=== PATIENT | male | born 1960 | race African-American/Black ===

== ENCOUNTER 2019-04-25 14:34 | Inpatient (IN) ==
[2019-04-26] MEDS ORDERED: DEXTROSE 50% 25 GM/50 ML VIAL IV PRN (12:28)
[2019-04-26] MEDS ORDERED: DEXTROSE 10% 250 ML BAG IV PRN (12:28)
[2019-04-26] MEDS ORDERED: GLUCAGON 1 MG VIAL IM PRN ×2 (12:28)
[2019-04-26] MEDS ORDERED: NAPROXEN 500 MG TABLET PO PRN (12:32)
[2019-04-26] MEDS: hydrALAZINE 25 MG TABLET PO SCH ×2 (16:48→21:09)
[2019-04-26] MEDS: NON-FORMULARY MEDICATION (Sucroferric Oxyhydroxide [Velphoro] 500 MG) PO SCH (16:49)
[2019-04-26] MEDS: INSULIN LISPRO 100 UNIT/ML SUBCUT SCH ×2 (16:49→21:11)
[2019-04-26] MEDS ORDERED: NON-FORMULARY MEDICATION (Sucroferric Oxyhydroxide [Velphoro] 500 MG) PO SCH (17:00)
[2019-04-26] MEDS: SIMVASTATIN 10 MG TABLET PO SCH (21:09)
[2019-04-26] MEDS: amLODIPine 10 MG TABLET PO SCH (21:09)
[2019-04-27 04:50] LABS: Basophils # 0.1 10*3/uL (0.0-0.2); Basophils % 1.3 % (0.0-0.8); Eosinophils # 0.4 10*3/uL (0.0-0.87); Eosinophils % 6.1 % (0.00-10.9); Hematocrit 34.3 VOL% (42.0-52.0); Hemoglobin 10.8 GM/DL (14.0-18.0); Immature Granulocytes % 0.4 %; Immature Granulocytes Absolute 0.03 #; Lymphocytes % 14.9 % (21.2-54.2); Mean Corpuscular HGB Conc 31.5 GM/DL (32-36); Mean Platelet Volume 11.2 FL (9.6-12.0); Monocytes % 16.3 % (1.7-12.7); NRBC # 0.02 10*3/uL; Platelet Count 288 T/CUMM (130-400); Red Blood Count 3.61 MC/CUMM (3.8-5.5); Red Cell Distribution Width 17.2 % (9.3-17.3); White Blood Count 6.8 T/CUMM (4-12)
[2019-04-27 05:16] LABS: Bilirubin,Total 0.9 MG/DL (0.2-1.0); Calcium 8.8 MG/DL (8.5-10.1); Eosinophils 4 % (0-10); Lymphocytes 11 % (20-55); Nucleated Red Blood Cells 1 (0-5); Osmolality,Calculated 275.7 MOS/KG (273-304); Segmented Neutrophils 74 % (50-85); Total Cells Counted 100; Total Protein 7.5 G/DL (6.4-8.3)
[2019-04-27 05:17] LABS: Hypochromasia Slight; Macrocytosis Slight; Ovalocytes Slight; Platelet Estimate Normal
[2019-04-27] MEDS: INSULIN LISPRO 100 UNIT/ML SUBCUT SCH (09:07)
[2019-04-27] MEDS: LOSARTAN 50 MG TABLET PO SCH ×2 (09:38→13:38)
[2019-04-27] MEDS: NON-FORMULARY MEDICATION (Sucroferric Oxyhydroxide [Velphoro] 500 MG) PO SCH ×3 (09:38→16:32)
[2019-04-27] MEDS: hydrALAZINE 25 MG TABLET PO SCH ×4 (09:38→20:57)
[2019-04-27] MEDS: CINACALCET 30 MG TABLET PO SCH ×2 (10:28→13:38)
[2019-04-27] MEDS: PANTOPRAZOLE 40 MG TABLET PO SCH ×2 (10:28→13:39)
[2019-04-27] MEDS: FAMOTIDINE 20 MG TABLET PO SCH ×2 (10:28→13:39)
[2019-04-27] MEDS: SIMVASTATIN 10 MG TABLET PO SCH (20:57)
[2019-04-27] MEDS: amLODIPine 10 MG TABLET PO SCH (20:58)
[2019-04-28 05:35] LABS: Calcium 8.4 MG/DL (8.5-10.1); Osmolality,Calculated 277.4 MOS/KG (273-304)
[2019-04-28] MEDS: CINACALCET 30 MG TABLET PO SCH (09:01)
[2019-04-28] MEDS: PANTOPRAZOLE 40 MG TABLET PO SCH (09:01)
[2019-04-28] MEDS: LOSARTAN 50 MG TABLET PO SCH (09:01)
[2019-04-28] MEDS: NON-FORMULARY MEDICATION (Sucroferric Oxyhydroxide [Velphoro] 500 MG) PO SCH ×3 (09:02→16:03)
[2019-04-28] MEDS: FAMOTIDINE 20 MG TABLET PO SCH (09:02)
[2019-04-28] MEDS: hydrALAZINE 25 MG TABLET PO SCH ×3 (09:02→21:06)
[2019-04-28] MEDS: amLODIPine 10 MG TABLET PO SCH (21:06)
[2019-04-28] MEDS: SIMVASTATIN 10 MG TABLET PO SCH (21:06)
[2019-04-29 06:07] LABS: Basophils # 0.1 10*3/uL (0.0-0.2); Basophils % 1.7 % (0.0-0.8); Eosinophils # 0.4 10*3/uL (0.0-0.87); Eosinophils % 7.8 % (0.00-10.9); Hematocrit 34.2 VOL% (42.0-52.0); Hemoglobin 10.7 GM/DL (14.0-18.0); Immature Granulocytes % 0.4 %; Immature Granulocytes Absolute 0.02 #; Lymphocytes % 18.1 % (21.2-54.2); Mean Corpuscular HGB Conc 31.3 GM/DL (32-36); Mean Platelet Volume 10.3 FL (9.6-12.0); Monocytes % 19.9 % (1.7-12.7); Neutrophils % 52.1 % (38.7-73.9); Platelet Count 245 T/CUMM (130-400); Red Cell Distribution Width 17.1 % (9.3-17.3); White Blood Count 5.4 T/CUMM (4-12)
[2019-04-29 06:38] LABS: Calcium 8.2 MG/DL (8.5-10.1); Osmolality,Calculated 274.8 MOS/KG (273-304)
[2019-04-29 07:37] LABS: Eosinophils 11 % (0-10); Hypochromasia Slight; Lymphocytes 16 % (20-55); Macrocytosis Slight; Ovalocytes Slight; Platelet Estimate Adequate; Segmented Neutrophils 61 % (50-85); Total Cells Counted 100
[2019-04-29] MEDS: CINACALCET 30 MG TABLET PO SCH (09:06)
[2019-04-29] MEDS: LOSARTAN 50 MG TABLET PO SCH (09:06)
[2019-04-29] MEDS: PANTOPRAZOLE 40 MG TABLET PO SCH (09:07)
[2019-04-29] MEDS: hydrALAZINE 25 MG TABLET PO SCH ×3 (09:07→21:30)
[2019-04-29] MEDS: FAMOTIDINE 20 MG TABLET PO SCH (09:07)
[2019-04-29] MEDS: NON-FORMULARY MEDICATION (Sucroferric Oxyhydroxide [Velphoro] 500 MG) PO SCH ×3 (09:07→16:13)
[2019-04-29] MEDS: amLODIPine 10 MG TABLET PO SCH (21:30)
[2019-04-29] MEDS: SIMVASTATIN 10 MG TABLET PO SCH (21:30)
[2019-04-30] MEDS: NON-FORMULARY MEDICATION (Sucroferric Oxyhydroxide [Velphoro] 500 MG) PO SCH ×3 (09:05→16:24)
[2019-04-30] MEDS: CINACALCET 30 MG TABLET PO SCH (09:06)
[2019-04-30] MEDS: LOSARTAN 50 MG TABLET PO SCH (09:06)
[2019-04-30] MEDS: ASPIRIN EC 81 MG TABLET PO SCH (09:06)
[2019-04-30] MEDS: hydrALAZINE 25 MG TABLET PO SCH ×3 (09:06→20:39)
[2019-04-30] MEDS: FAMOTIDINE 20 MG TABLET PO SCH (09:06)
[2019-04-30] MEDS: PANTOPRAZOLE 40 MG TABLET PO SCH (09:06)
[2019-04-30] MEDS ORDERED: DEXTROSE 50% 25 GM/50 ML VIAL IV PRN (09:53)
[2019-04-30] MEDS ORDERED: GLUCAGON 1 MG VIAL IM PRN (09:53)
[2019-04-30] MEDS ORDERED: SODIUM CHLORIDE 0.9% 1,000 ML IV SCH (10:00)
[2019-04-30] MEDS ORDERED: CEFUROXIME INJ 1,500 MG in SYRINGE 1 EACH IV ONE (10:00)
[2019-04-30 10:44] LABS: Basophils # 0.1 10*3/uL (0.0-0.2); Basophils % 1.2 % (0.0-0.8); Eosinophils # 0.5 10*3/uL (0.0-0.87); Eosinophils % 7.1 % (0.00-10.9); Hematocrit 34.3 VOL% (42.0-52.0); Hemoglobin 11.1 GM/DL (14.0-18.0); Immature Granulocytes % 0.4 %; Immature Granulocytes Absolute 0.03 #; Lymphocytes # 0.7 10*3/uL (1.4-4.0); Lymphocytes % 10.3 % (21.2-54.2); Mean Corpuscular HGB Conc 32.4 GM/DL (32-36); Mean Corpuscular Volume 92.7 FL (87-102); Mean Platelet Volume 10.1 FL (9.6-12.0); Monocytes % 13.6 % (1.7-12.7); Neutrophils % 67.4 % (38.7-73.9); Platelet Count 241 T/CUMM (130-400); White Blood Count 6.9 T/CUMM (4-12)
[2019-04-30 11:21] LABS: Albumin 3.2 G/DL (3.4-5.0); Bilirubin,Total 0.5 MG/DL (0.2-1.0); Calcium 8.5 MG/DL (8.5-10.1); Osmolality,Calculated 274.4 MOS/KG (273-304); Total Protein 7.7 G/DL (6.4-8.3)
[2019-04-30] MEDS: CHLORHEXIDINE 4% SOLN 118 ML BOTTLE TOP SCH ×2 (15:43→20:45)
[2019-04-30 16:14] LABS: ABG Base Excess 1.5 MMOL/L (-2.5-2.5); ABG HCO3 25.7 MMOL/L (20-26); ABG Oxygen Saturation 96.9 % (95-100); ABG PCO2 37.3 MM HG (35-48); ABG PH 7.441 (7.35-7.45); ABG TCO2 22.5 MMOL/L (23-27)
[2019-04-30] MEDS: amLODIPine 10 MG TABLET PO SCH (20:39)
[2019-04-30] MEDS: SIMVASTATIN 10 MG TABLET PO SCH (20:40)
[2019-04-30] MEDS: CHLORHEXIDINE 0.12% ORAL RINSE 60 ML BOTTLE SWISH/SPIT SCH (21:10)
[2019-05-01] MEDS ORDERED: VANCOMYCIN 500 MG VIAL ONE (04:22)
[2019-05-01] MEDS ORDERED: PAPAVERINE 60 MG/2 ML VIAL ONE (04:22)
[2019-05-01] MEDS ORDERED: VANCOMYCIN 1,000 MG VIAL ONE (04:22)
[2019-05-01] MEDS ORDERED: LORazepam 1 MG TABLET PO ONE (05:30)
[2019-05-01] MEDS ORDERED: PANTOPRAZOLE 40 MG TABLET PO ONE (05:30)
[2019-05-01] MEDS ORDERED: CEFUROXIME INJ 1,500 MG in SYRINGE 1 EACH IV ONE (06:00)
[2019-05-01 06:02] LABS: Calcium 8.1 MG/DL (8.5-10.1); Osmolality,Calculated 274.5 MOS/KG (273-304)
[2019-05-01] MEDS ORDERED: HEPARIN/NACL 0.9% 2 UNITS/ML 500 ML IV ONE (06:04)
[2019-05-01] MEDS ORDERED: PHENYLEPHRINE DRIP 20 MG/250 ML PREMIX IV ONE (06:04)
[2019-05-01] MEDS ORDERED: MIDAZOLAM 10 MG/2 ML VIAL ONE ×2 (06:04→06:05)
[2019-05-01] MEDS ORDERED: SUFentanil 250 MCG/5 ML AMP ONE (06:04)
[2019-05-01] MEDS ORDERED: AMINOCAPROIC ACID 5,000 MG/20 ML VIAL ONE (06:05)
[2019-05-01] MEDS ORDERED: CISATRACURIUM 10 MG/5 ML VIAL IV ONE (06:05)
[2019-05-01] MEDS ORDERED: ATROPINE 1 MG/10 ML SYRINGE ONE (07:09)
[2019-05-01] MEDS ORDERED: CALCIUM CHLORIDE 1,000 MG/10 ML SYRINGE IV ONE (07:09)
[2019-05-01] MEDS ORDERED: EPINEPHrine 1 MG/10 ML SYRINGE ONE (07:10)
[2019-05-01] MEDS ORDERED: ALBUMIN 5% 12.5 GM/250 ML VIAL IV ONE (07:10)
[2019-05-01] MEDS ORDERED: PHENYLEPHRINE DRIP 40 MG/250 ML PREMIX IV ONE (07:11)
[2019-05-01] MEDS ORDERED: NITROPRUSSIDE 50 MG/2 ML VIAL ONE (07:11)
[2019-05-01 07:39] LABS: ABG Base Excess -0.1 MMOL/L (-2.5-2.5); ABG HCO3 24.3 MMOL/L (20-26); ABG Oxygen Saturation 99.6 % (95-100); ABG PCO2 31.5 MM HG (35-48); ABG TCO2 20.6 MMOL/L (23-27); Glucose Heart Surgery 163 MG/DL (74-106); Hematocrit Heart Surgery 32.2 PERCENT (42-52); Hemoglobin Heart Surgery 10.4 G/DL (14.0-18.0); Ionized Calcium Arterial 0.99 MMOL/L (1.21-1.46); PCO2 Patient Temp Arterial 31.5 MMHG; Patient Temperature 37 CELCIUS; Potassium Heart/CVR 4.9 MMOL/L (3.5-5.1); Sodium Heart/CVR 131 MMOL/L (135-145)
[2019-05-01 08:29] LABS: Hemoglobin Heart Surgery 7.7 G/DL (14.0-18.0); PCO2 Patient Temp Venous 33.8 MM HG; PH Patient Temp Venous 7.453; Potassium Heart/CVR 6.3 MMOL/L (3.5-5.1); VBG Base Excess 0.1 MEQ/L (0-4); VBG HCO3 24.3 MEQ/L (24-28); VBG Oxygen Saturation 80.9 %; VBG PCO2 35.5 MMHG (41-51); VBG PH 7.438
[2019-05-01 09:05] LABS: Hematocrit Heart Surgery 25.4 PERCENT (42-52); Hemoglobin Heart Surgery 8.2 G/DL (14.0-18.0); PCO2 Patient Temp Venous 32.2 MM HG; PH Patient Temp Venous 7.433; PO2 Patient Temp Venous 45.7 MM HG; Potassium Heart/CVR 6.1 MMOL/L (3.5-5.1); VBG Base Excess -2.2 MEQ/L (0-4); VBG HCO3 22.3 MEQ/L (24-28); VBG Oxygen Saturation 80.9 %; VBG PCO2 32.2 MMHG (41-51); VBG PH 7.433; VBG PO2 45.7 MMHG (17-40)
[2019-05-01] MEDS ORDERED: MANNITOL 100 GM/500 ML BAG IV ONE (09:27)
[2019-05-01] MEDS ORDERED: SODIUM BICARBONATE 50 MEQ/50 ML VIAL IV ONE ×3 (09:28→21:30)
[2019-05-01] MEDS ORDERED: DEXTROSE 5% KCL 20 MEQ 20 MEQ/1,000 ML BAG IV ONE (09:28)
[2019-05-01] MEDS ORDERED: methylPREDNISolone SOD SUC 1,000 MG/8 ML VIAL ONE (09:28)
[2019-05-01] MEDS ORDERED: ALBUMIN 25% 25 GM/100 ML VIAL IV ONE (09:28)
[2019-05-01] MEDS ORDERED: HEPARIN 10,000 UNIT/10 ML VIAL ONE (09:28)
[2019-05-01] MEDS ORDERED: LIDOCAINE 2% 5 ML VIAL ONE ×2 (09:28→10:48)
[2019-05-01] MEDS ORDERED: FUROSEMIDE 20 MG/2 ML VIAL ONE (09:28)
[2019-05-01] MEDS ORDERED: MAGNESIUM SULFATE 5 GM/10 ML VIAL IV ONE (09:28)
[2019-05-01] MEDS ORDERED: PROTAMINE SULFATE 250 MG/25 ML VIAL IV ONE (09:29)
[2019-05-01 09:43] LABS: ABG Base Excess -5.3 MMOL/L (-2.5-2.5); ABG HCO3 20.1 MMOL/L (20-26); ABG Oxygen Saturation 99.4 % (95-100); ABG PCO2 32.1 MM HG (35-48); ABG TCO2 17.2 MMOL/L (23-27); Glucose Heart Surgery 255 MG/DL (74-106); Hematocrit Heart Surgery 32.3 PERCENT (42-52); Hemoglobin Heart Surgery 10.5 G/DL (14.0-18.0); Ionized Calcium Arterial 1.05 MMOL/L (1.21-1.46); PCO2 Patient Temp Arterial 32.1 MMHG; Patient Temperature 37 CELCIUS; Potassium Heart/CVR 5.7 MMOL/L (3.5-5.1); Sodium Heart/CVR 129 MMOL/L (135-145)
[2019-05-01] MEDS ORDERED: ACETAMINOPHEN 650 MG SUPP RECTAL PRN (10:32)
[2019-05-01] MEDS ORDERED: MIDAZOLAM 2 MG/2 ML VIAL IV PRN (10:32)
[2019-05-01] MEDS ORDERED: DEXTROSE 50% 25 GM/50 ML VIAL IV PRN ×2 (10:32)
[2019-05-01] MEDS ORDERED: CHLORHEXIDINE 4% SOLN 118 ML BOTTLE TOP PRN (10:32)
[2019-05-01] MEDS ORDERED: ALBUMIN 5% 12.5 GM in PREMIX 1 EACH IV PRN (10:32)
[2019-05-01] MEDS ORDERED: ONDANSETRON 4 MG/2 ML VIAL IV PRN (10:32)
[2019-05-01] MEDS ORDERED: CALCIUM CHLORIDE 1,000 MG/10 ML SYRINGE IV PRN (10:32)
[2019-05-01] MEDS ORDERED: POTASSIUM CHLORIDE RIDER 10 MEQ in PREMIX 1 EACH IV PRN (10:32)
[2019-05-01] MEDS ORDERED: NITROPRUSSIDE 100 MG in DEXTROSE 5% 250 ML IV PRN (10:32)
[2019-05-01] MEDS ORDERED: VECURONIUM 10 MG VIAL IV PRN ×2 (10:32)
[2019-05-01] MEDS ORDERED: MAGNESIUM SULF RIDER 4 GM in PREMIX 1 EACH IV PRN (10:32)
[2019-05-01] MEDS ORDERED: MIDAZOLAM 10 MG/2 ML VIAL IV PRN (10:32)
[2019-05-01] MEDS ORDERED: MAGNESIUM SULF RIDER 2 GM in PREMIX 1 EACH IV PRN (10:32)
[2019-05-01] MEDS ORDERED: SODIUM CHLORIDE 0.45% 1,000 ML IV SCH ×2 (10:32)
[2019-05-01] MEDS ORDERED: MORPHINE 10 MG/1 ML VIAL IV PRN (10:32)
[2019-05-01] MEDS ORDERED: POTASSIUM CHLORIDE RIDER 20 MEQ in PREMIX 1 EACH IV PRN (10:32)
[2019-05-01] MEDS ORDERED: PHENYLEPHRINE DRIP 40 MG/250 ML PREMIX IV PRN (10:32)
[2019-05-01] MEDS ORDERED: LACTATED RINGERS 250 ML IV PRN (10:32)
[2019-05-01] MEDS: CHLORHEXIDINE 4% SOLN 118 ML BOTTLE TOP SCH (10:48)
[2019-05-01] MEDS ORDERED: ETOMIDATE 40 MG/20 ML VIAL IV ONE (10:49)
[2019-05-01] MEDS ORDERED: SEVOFLURANE 1 UNIT/15 MINUTE INH ONE (10:49)
[2019-05-01] MEDS ORDERED: CALCIUM CHLORIDE 1,000 MG/10 ML VIAL IV ONE (10:49)
[2019-05-01] MEDS ORDERED: LACTATED RINGERS 1,000 ML IV ONE (10:49)
[2019-05-01] MEDS: hydrALAZINE 25 MG TABLET PO SCH (10:50)
[2019-05-01] MEDS: NON-FORMULARY MEDICATION (Sucroferric Oxyhydroxide [Velphoro] 500 MG) PO SCH (10:50)
[2019-05-01] MEDS: PANTOPRAZOLE 40 MG TABLET PO SCH (10:51)
[2019-05-01] MEDS: CINACALCET 30 MG TABLET PO SCH (10:51)
[2019-05-01] MEDS: CHLORHEXIDINE 0.12% ORAL RINSE 60 ML BOTTLE SWISH/SPIT SCH ×2 (10:51→21:01)
[2019-05-01] MEDS: FAMOTIDINE 20 MG TABLET PO SCH (10:51)
[2019-05-01] MEDS: ASPIRIN EC 81 MG TABLET PO SCH (10:51)
[2019-05-01] MEDS: LOSARTAN 50 MG TABLET PO SCH (10:51)
[2019-05-01] MEDS ORDERED: DEXTROSE 10% 250 ML BAG IV PRN ×2 (11:00)
[2019-05-01 11:26] LABS: ABG Base Excess -3.9 MMOL/L (-2.5-2.5); ABG HCO3 21.2 MMOL/L (20-26); ABG PH 7.403 (7.35-7.45); ABG TCO2 17.9 MMOL/L (23-27); Glucose Heart Surgery 270 MG/DL (74-106); Hematocrit Heart Surgery 34.7 PERCENT (42-52); Hemoglobin Heart Surgery 11.2 G/DL (14.0-18.0); Potassium Heart/CVR 5.7 MMOL/L (3.5-5.1)
[2019-05-01] MEDS ORDERED: INSULIN REGULAR DRIP 100 ML IV SCH (11:30)
[2019-05-01] MEDS ORDERED: INSULIN REGULAR 100 UNIT/ML IV ONE ×2 (11:30→19:18)
[2019-05-01 11:35] LABS: Basophils # 0.1 10*3/uL (0.0-0.2); Basophils % 0.6 % (0.0-0.8); Eosinophils # 0.1 10*3/uL (0.0-0.87); Hematocrit 34.8 VOL% (42.0-52.0); Immature Granulocytes % 0.7 %; Immature Granulocytes Absolute 0.08 #; Lymphocytes # 0.4 10*3/uL (1.4-4.0); Mean Corpuscular HGB Conc 31.6 GM/DL (32-36); Mean Corpuscular Volume 92.1 FL (87-102); Mean Platelet Volume 10.8 FL (9.6-12.0); Monocytes % 5.9 % (1.7-12.7); Neutrophils % 88.8 % (38.7-73.9); Platelet Count 188 T/CUMM (130-400); Red Blood Count 3.78 MC/CUMM (3.8-5.5); Red Cell Distribution Width 17.4 % (9.3-17.3); White Blood Count 11.5 T/CUMM (4-12)
[2019-05-01 11:44] LABS: INR 1.1; Partial Thromboplastin Time 28.7 SECS (20.8-36.0)
[2019-05-01 12:00] LABS: Albumin 3.1 G/DL (3.4-5.0); Bilirubin,Total 0.7 MG/DL (0.2-1.0); Osmolality,Calculated 274.8 MOS/KG (273-304); Total Protein 6.4 G/DL (6.4-8.3)
[2019-05-01 12:02] LABS: CKMB % 5.2 %
[2019-05-01 12:04] LABS: Troponin I 1.49 NG/ML (0.00-0.045)
[2019-05-01] MEDS: INSULIN REGULAR 100 UNIT/ML IV PRN (12:11)
[2019-05-01 12:20] LABS: Anisocytosis 2+; Band Neutrophils 11 % (0-10); Eosinophils 2 % (0-10); Lymphocytes 2 % (20-55); Macrocytosis 1+; Platelet Estimate Normal; Poikilocytosis Slight; Segmented Neutrophils 76 % (50-85); Total Cells Counted 100
[2019-05-01] MEDS: MORPHINE 4 MG/1 ML VIAL IV PRN ×2 (14:15→17:42)
[2019-05-01] MEDS ORDERED: SODIUM CHLORIDE 0.9% 250 ML IV PRN (15:10)
[2019-05-01 15:34] LABS: ABG HCO3 20.3 MMOL/L (20-26); ABG Oxygen Saturation 98.6 % (95-100); ABG PCO2 35.4 MM HG (35-48); ABG PH 7.357 (7.35-7.45); ABG TCO2 17.8 MMOL/L (23-27); Glucose Heart Surgery 52 MG/DL (74-106); Hemoglobin Heart Surgery 11.4 G/DL (14.0-18.0); Potassium Heart/CVR 4.6 MMOL/L (3.5-5.1)
[2019-05-01] MEDS ORDERED: DEXTROSE 10% 250 ML IV SCH (17:00)
[2019-05-01 18:04] LABS: ABG Base Excess -6.8 MMOL/L (-2.5-2.5); ABG Oxygen Saturation 98.6 % (95-100); ABG PCO2 24.4 MM HG (35-48); ABG PH 7.435 (7.35-7.45); ABG PO2 176.6 MM HG (80-95); ABG TCO2 16.8 MMOL/L (23-27); Glucose Heart Surgery 103 MG/DL (74-106); Hemoglobin Heart Surgery 10.6 G/DL (14.0-18.0)
[2019-05-01 18:52] LABS: ABG Base Excess -6.5 MMOL/L (-2.5-2.5); ABG HCO3 19.1 MMOL/L (20-26); ABG Oxygen Saturation 98.8 % (95-100); ABG PCO2 32.7 MM HG (35-48); ABG PH 7.353 (7.35-7.45); ABG TCO2 16.4 MMOL/L (23-27); Glucose Heart Surgery 148 MG/DL (74-106); Hematocrit Heart Surgery 34.3 PERCENT (42-52); Hemoglobin Heart Surgery 11.1 G/DL (14.0-18.0)
[2019-05-01] MEDS ORDERED: CALCIUM GLUCONATE 1,000 MG in SODIUM CHLORIDE 0.9% 100 ML IV ONE (19:18)
[2019-05-01] MEDS ORDERED: CALCIUM GLUCONATE 1,000 MG/10 ML VIAL IV ONE (19:24)
[2019-05-01] MEDS ORDERED: SODIUM CHLORIDE 0.9% 100 ML IV ONE (19:24)
[2019-05-01 19:29] LABS: CKMB % 5.9 %
[2019-05-01] MEDS: DEXTROSE 10% 250 ML BAG IV PRN (19:42)
[2019-05-01 19:45] LABS: Troponin I 2.86 NG/ML (0.00-0.045)
[2019-05-01] MEDS: CEFUROXIME INJ 1,500 MG in SYRINGE 1 EACH IV SCH (20:15)
[2019-05-01 20:26] LABS: ABG Base Excess -6.4 MMOL/L (-2.5-2.5); ABG HCO3 19.2 MMOL/L (20-26); ABG Oxygen Saturation 98.9 % (95-100); ABG PCO2 32.3 MM HG (35-48); ABG PH 7.358 (7.35-7.45); ABG TCO2 16.5 MMOL/L (23-27); Glucose Heart Surgery 182 MG/DL (74-106); Hemoglobin Heart Surgery 10.7 G/DL (14.0-18.0)
[2019-05-01 21:11] LABS: ABG Base Excess -6.3 MMOL/L (-2.5-2.5); ABG HCO3 19.3 MMOL/L (20-26); ABG Oxygen Saturation 98.6 % (95-100); ABG PCO2 41.6 MM HG (35-48); ABG TCO2 18.3 MMOL/L (23-27); Glucose Heart Surgery 151 MG/DL (74-106); Hematocrit Heart Surgery 33.2 PERCENT (42-52); Hemoglobin Heart Surgery 10.7 G/DL (14.0-18.0)
[2019-05-01] MEDS ORDERED: SODIUM BICARBONATE 50 MEQ/50 ML VIAL IV PRN (21:30)
[2019-05-01 22:53] LABS: ABG Base Excess -4.1 MMOL/L (-2.5-2.5); ABG Oxygen Saturation 98.1 % (95-100); ABG PCO2 42.6 MM HG (35-48); ABG PH 7.319 (7.35-7.45); ABG TCO2 19.8 MMOL/L (23-27); Glucose Heart Surgery 147 MG/DL (74-106); Hematocrit Heart Surgery 34.1 PERCENT (42-52); Potassium Heart/CVR 5.5 MMOL/L (3.5-5.1)
[2019-05-02 03:23] LABS: ABG Base Excess -7.6 MMOL/L (-2.5-2.5); ABG HCO3 18.1 MMOL/L (20-26); ABG Oxygen Saturation 97.5 % (95-100); ABG PCO2 37.3 MM HG (35-48); ABG PH 7.304 (7.35-7.45); ABG PO2 115.4 MM HG (80-95); ABG TCO2 19.3 MMOL/L (23-27); Glucose Heart Surgery 164 MG/DL (74-106); Hemoglobin Heart Surgery 11.4 G/DL (14.0-18.0)
[2019-05-02 03:24] LABS: Potassium Heart/CVR 6.3 MMOL/L (3.5-5.1)
[2019-05-02] MEDS ORDERED: CALCIUM GLUCONATE 1,000 MG in SODIUM CHLORIDE 0.9% 100 ML IV ONE (03:29)
[2019-05-02] MEDS ORDERED: SODIUM CHLORIDE 0.9% 100 ML IV ONE (03:33)
[2019-05-02] MEDS ORDERED: CALCIUM GLUCONATE 1,000 MG/10 ML VIAL IV ONE (03:33)
[2019-05-02 03:35] LABS: Basophils % 0.1 % (0.0-0.8); Hematocrit 35.5 VOL% (42.0-52.0); Hemoglobin 11.1 GM/DL (14.0-18.0); Immature Granulocytes % 0.6 %; Immature Granulocytes Absolute 0.08 #; Lymphocytes # 0.5 10*3/uL (1.4-4.0); Lymphocytes % 3.6 % (21.2-54.2); Mean Corpuscular HGB Conc 31.3 GM/DL (32-36); Mean Corpuscular Volume 93.7 FL (87-102); Mean Platelet Volume 11.3 FL (9.6-12.0); Monocytes % 5.9 % (1.7-12.7); Neutrophils % 89.8 % (38.7-73.9); Platelet Count 193 T/CUMM (130-400); Red Blood Count 3.79 MC/CUMM (3.8-5.5); Red Cell Distribution Width 17.9 % (9.3-17.3); White Blood Count 14.3 T/CUMM (4-12)
[2019-05-02] MEDS: DEXTROSE 10% 250 ML BAG IV PRN (03:37)
[2019-05-02] MEDS: INSULIN REGULAR 100 UNIT/ML IV PRN (03:38)
[2019-05-02 03:56] LABS: Eosinophils 1 % (0-10); Hypochromasia Slight; Lymphocytes 3 % (20-55); Ovalocytes Slight; Platelet Estimate Adequate; Segmented Neutrophils 90 % (50-85); Total Cells Counted 100
[2019-05-02 03:57] LABS: Bilirubin,Direct 0.18 MG/DL (0.0-0.20); Bilirubin,Total 0.5 MG/DL (0.2-1.0); Calcium 8.5 MG/DL (8.5-10.1); Osmolality,Calculated 279.5 MOS/KG (273-304); Total Protein 7.1 G/DL (6.4-8.3)
[2019-05-02 03:59] LABS: CKMB % 9.3 %
[2019-05-02 04:03] LABS: Troponin I 6.75 NG/ML (0.00-0.045)
[2019-05-02 05:17] LABS: ABG Base Excess -5.2 MMOL/L (-2.5-2.5); ABG HCO3 20.7 MMOL/L (20-26); ABG Oxygen Saturation 97.4 % (95-100); ABG PCO2 41.4 MM HG (35-48); ABG PH 7.316 (7.35-7.45); ABG TCO2 21.9 MMOL/L (23-27); Glucose Heart Surgery 188 MG/DL (74-106); Hemoglobin Heart Surgery 10.9 G/DL (14.0-18.0); Potassium Heart/CVR 4.8 MMOL/L (3.5-5.1)
[2019-05-02] MEDS: CEFUROXIME INJ 1,500 MG in SYRINGE 1 EACH IV SCH ×2 (08:14→22:27)
[2019-05-02] MEDS: CHLORHEXIDINE 0.12% ORAL RINSE 60 ML BOTTLE SWISH/SPIT SCH ×2 (08:15→22:00)
[2019-05-02] MEDS: INSULIN REGULAR 100 UNIT/ML SUBCUT SCH ×5 (09:31→22:00)
[2019-05-02] MEDS: MORPHINE 4 MG/1 ML VIAL IV PRN (12:04)
[2019-05-02] MEDS ORDERED: MAGNESIUM SULF RIDER 2 GM in PREMIX 1 EACH IV PRN (16:56)
[2019-05-02] MEDS ORDERED: DEXTROSE 10% 250 ML BAG IV PRN ×2 (16:56)
[2019-05-02] MEDS ORDERED: ONDANSETRON 4 MG/2 ML VIAL IV PRN (16:56)
[2019-05-02] MEDS ORDERED: ALUMINUM/MAGNES/SIMETH MAX STR 30 ML UDCUP PO PRN (16:56)
[2019-05-02] MEDS ORDERED: MAGNESIUM SULF RIDER 4 GM in PREMIX 1 EACH IV PRN (16:56)
[2019-05-02] MEDS ORDERED: POTASSIUM CHLORIDE 20 MEQ TABLET PO PRN (16:56)
[2019-05-02] MEDS ORDERED: MAGNESIUM HYDROXIDE SUSP 30 ML UDCUP PO PRN (16:56)
[2019-05-02] MEDS ORDERED: SODIUM CHLOR 0.45% KCL 20 MEQ 20 MEQ/1,000 ML BAG IV SCH (16:56)
[2019-05-02] MEDS ORDERED: GLUCAGON 1 MG VIAL IM PRN ×2 (16:56)
[2019-05-02] MEDS ORDERED: ZALEPLON 5 MG CAPSULE PO PRN (16:56)
[2019-05-02] MEDS ORDERED: ACETAMINOPHEN 325 MG TABLET PO PRN (16:56)
[2019-05-02] MEDS ORDERED: VELPHORO 500 MG PO PRN (17:16)
[2019-05-02] MEDS: VELPHORO 500 MG PO SCH (18:57)
[2019-05-02] MEDS: SIMVASTATIN 10 MG TABLET PO SCH (21:09)
[2019-05-02] MEDS: hydrALAZINE 25 MG TABLET PO SCH (21:09)
[2019-05-02] MEDS: amLODIPine 10 MG TABLET PO SCH (21:09)
[2019-05-03] MEDS: INSULIN REGULAR 100 UNIT/ML SUBCUT SCH ×6 (00:05→21:12)
[2019-05-03 04:41] LABS: Basophils % 0.1 % (0.0-0.8); Hematocrit 29.7 VOL% (42.0-52.0); Hemoglobin 9.3 GM/DL (14.0-18.0); Immature Granulocytes Absolute 0.13 #; Lymphocytes # 0.3 10*3/uL (1.4-4.0); Lymphocytes % 2.2 % (21.2-54.2); Mean Corpuscular HGB Conc 31.3 GM/DL (32-36); Mean Corpuscular Volume 94.6 FL (87-102); Mean Platelet Volume 12.5 FL (9.6-12.0); Monocytes % 13.2 % (1.7-12.7); Neutrophils % 83.5 % (38.7-73.9); Platelet Count 167 T/CUMM (130-400); Red Blood Count 3.14 MC/CUMM (3.8-5.5); Red Cell Distribution Width 17.8 % (9.3-17.3); White Blood Count 13.6 T/CUMM (4-12)
[2019-05-03 05:01] LABS: Hypochromasia 1+; Lymphocytes 2 % (20-55); Nucleated Red Blood Cells 2 (0-5); Ovalocytes Slight; Platelet Estimate Adequate; Segmented Neutrophils 89 % (50-85); Total Cells Counted 100
[2019-05-03 05:13] LABS: Albumin 2.7 G/DL (3.4-5.0); Bilirubin,Direct 0.13 MG/DL (0.0-0.20); Bilirubin,Indirect 1.2 MG/DL (0.0-1.0); Bilirubin,Total 1.3 MG/DL (0.2-1.0); CKMB % 6.1 %; Calcium 8.8 MG/DL (8.5-10.1); Osmolality,Calculated 280.5 MOS/KG (273-304); Total Protein 6.6 G/DL (6.4-8.3); Troponin I 6.88 NG/ML (0.00-0.045)
[2019-05-03] MEDS ORDERED: FUROSEMIDE 40 MG/4 ML VIAL IV ONE (06:00)
[2019-05-03] MEDS: FERROUS SULFATE 325 MG TABLET PO SCH (09:06)
[2019-05-03] MEDS: amLODIPine 10 MG TABLET PO SCH (09:06)
[2019-05-03] MEDS: hydrALAZINE 25 MG TABLET PO SCH ×2 (09:06→21:12)
[2019-05-03] MEDS: PANTOPRAZOLE 40 MG TABLET PO SCH (09:06)
[2019-05-03] MEDS: ASPIRIN EC 81 MG TABLET PO SCH (09:07)
[2019-05-03] MEDS: DOCUSATE SODIUM 100 MG CAPSULE PO SCH (09:07)
[2019-05-03] MEDS: CHLORHEXIDINE 0.12% ORAL RINSE 60 ML BOTTLE SWISH/SPIT SCH ×2 (09:07→21:13)
[2019-05-03] MEDS: VELPHORO 500 MG PO SCH ×3 (09:08→17:12)
[2019-05-03] MEDS: CINACALCET 30 MG TABLET PO SCH (09:11)
[2019-05-03] MEDS: oxyCODONE/ACETAMINOPHEN 5-325 MG TABLET PO PRN ×2 (17:11→21:48)
[2019-05-03] MEDS: SIMVASTATIN 10 MG TABLET PO SCH (21:12)
[2019-05-04] MEDS: INSULIN REGULAR 100 UNIT/ML SUBCUT SCH ×6 (01:15→21:29)
[2019-05-04 05:06] LABS: Basophils % 0.3 % (0.0-0.8); Eosinophils # 0.1 10*3/uL (0.0-0.87); Eosinophils % 0.9 % (0.00-10.9); Hematocrit 30.6 VOL% (42.0-52.0); Hemoglobin 9.4 GM/DL (14.0-18.0); Immature Granulocytes % 0.7 %; Immature Granulocytes Absolute 0.07 #; Lymphocytes # 0.8 10*3/uL (1.4-4.0); Lymphocytes % 8.1 % (21.2-54.2); Mean Corpuscular HGB Conc 30.7 GM/DL (32-36); Mean Corpuscular Volume 95.9 FL (87-102); Mean Platelet Volume 12.1 FL (9.6-12.0); Monocytes % 16.5 % (1.7-12.7); Neutrophils % 73.5 % (38.7-73.9); Platelet Count 156 T/CUMM (130-400); Red Blood Count 3.19 MC/CUMM (3.8-5.5); Red Cell Distribution Width 17.3 % (9.3-17.3); White Blood Count 9.8 T/CUMM (4-12)
[2019-05-04 05:35] LABS: Eosinophils 2 % (0-10); Lymphocytes 10 % (20-55); Segmented Neutrophils 78 % (50-85); Total Cells Counted 100
[2019-05-04 05:36] LABS: Hypochromasia Slight; Macrocytosis 1+
[2019-05-04 05:37] LABS: Ovalocytes Slight; Platelet Estimate Adequate
[2019-05-04 05:48] LABS: Albumin 2.6 G/DL (3.4-5.0); Bilirubin,Direct 0.11 MG/DL (0.0-0.20); Bilirubin,Indirect 0.5 MG/DL (0.0-1.0); Bilirubin,Total 0.6 MG/DL (0.2-1.0); CKMB % 5.5 %; Calcium 8.2 MG/DL (8.5-10.1); Osmolality,Calculated 283.4 MOS/KG (273-304); Total Protein 6.7 G/DL (6.4-8.3)
[2019-05-04 05:49] LABS: Troponin I 6.19 NG/ML (0.00-0.045)
[2019-05-04] MEDS: VELPHORO 500 MG PO SCH ×3 (13:21→16:30)
[2019-05-04] MEDS: hydrALAZINE 25 MG TABLET PO SCH ×2 (13:22→21:29)
[2019-05-04] MEDS: FERROUS SULFATE 325 MG TABLET PO SCH (13:22)
[2019-05-04] MEDS: PANTOPRAZOLE 40 MG TABLET PO SCH (13:22)
[2019-05-04] MEDS: amLODIPine 10 MG TABLET PO SCH (13:22)
[2019-05-04] MEDS: DOCUSATE SODIUM 100 MG CAPSULE PO SCH (13:22)
[2019-05-04] MEDS: ASPIRIN EC 81 MG TABLET PO SCH (13:22)
[2019-05-04] MEDS: CINACALCET 30 MG TABLET PO SCH (13:22)
[2019-05-04] MEDS: CHLORHEXIDINE 0.12% ORAL RINSE 60 ML BOTTLE SWISH/SPIT SCH ×2 (13:23→21:30)
[2019-05-04] MEDS: oxyCODONE/ACETAMINOPHEN 5-325 MG TABLET PO PRN (13:25)
[2019-05-04] MEDS: SIMVASTATIN 10 MG TABLET PO SCH (21:29)
[2019-05-05 06:05] LABS: Calcium 8.1 MG/DL (8.5-10.1); Osmolality,Calculated 279.1 MOS/KG (273-304)
[2019-05-05] MEDS: DOCUSATE SODIUM 100 MG CAPSULE PO SCH (08:24)
[2019-05-05] MEDS: CINACALCET 30 MG TABLET PO SCH (08:24)
[2019-05-05] MEDS: hydrALAZINE 25 MG TABLET PO SCH ×2 (08:24→21:12)
[2019-05-05] MEDS: PANTOPRAZOLE 40 MG TABLET PO SCH (08:24)
[2019-05-05] MEDS: FERROUS SULFATE 325 MG TABLET PO SCH (08:25)
[2019-05-05] MEDS: ASPIRIN EC 81 MG TABLET PO SCH (08:25)
[2019-05-05] MEDS: amLODIPine 10 MG TABLET PO SCH (08:25)
[2019-05-05] MEDS: oxyCODONE/ACETAMINOPHEN 5-325 MG TABLET PO PRN ×2 (08:27→21:15)
[2019-05-05] MEDS: VELPHORO 500 MG PO SCH ×3 (08:28→17:14)
[2019-05-05] MEDS: CHLORHEXIDINE 0.12% ORAL RINSE 60 ML BOTTLE SWISH/SPIT SCH ×2 (08:29→21:13)
[2019-05-05] MEDS: INSULIN REGULAR 100 UNIT/ML SUBCUT SCH ×4 (08:29→21:12)
[2019-05-05] MEDS: SIMVASTATIN 10 MG TABLET PO SCH (21:13)
[2019-05-06 05:31] LABS: Hematocrit 28.2 VOL% (42.0-52.0); Hemoglobin 8.7 GM/DL (14.0-18.0); Red Blood Count 2.99 MC/CUMM (3.8-5.5); White Blood Count 7.4 T/CUMM (4-12)
[2019-05-06 05:32] LABS: Basophils # 0.1 10*3/uL (0.0-0.2); Basophils % 0.8 % (0.0-0.8); Eosinophils # 0.4 10*3/uL (0.0-0.87); Eosinophils % 5.7 % (0.00-10.9); Immature Granulocytes % 0.4 %; Immature Granulocytes Absolute 0.03 #; Lymphocytes # 0.9 10*3/uL (1.4-4.0); Mean Corpuscular HGB Conc 30.9 GM/DL (32-36); Mean Corpuscular Volume 94.3 FL (87-102); Mean Platelet Volume 11.8 FL (9.6-12.0); Monocytes % 16.4 % (1.7-12.7); Neutrophils % 64.7 % (38.7-73.9); Platelet Count 209 T/CUMM (130-400); Red Cell Distribution Width 16.9 % (9.3-17.3)
[2019-05-06 05:57] LABS: Alanine Aminotransferase 19 U/L (16-61); Albumin 2.4 G/DL (3.4-5.0); Alkaline Phosphatase 68 U/L (45-117); Aspartate Amino Transferase 24 U/L (0-37); Bilirubin,Indirect 0.3 MG/DL (0.0-1.0); Blood Urea Nitrogen 65 MG/DL (7-18); Calcium 7.6 MG/DL (8.5-10.1); Estimated Glom Filtration Rate 7 ML/MIN; Glucose 111 MG/DL (74-106); Osmolality,Calculated 287.2 MOS/KG (273-304); Total Protein 6.3 G/DL (6.4-8.3)
[2019-05-06 06:33] LABS: Anisocytosis 1+; Eosinophils 1 % (0-10); Lymphocytes 7 % (20-55); Platelet Estimate Adequate; Segmented Neutrophils 85 % (50-85); Total Cells Counted 100
[2019-05-06] MEDS: INSULIN REGULAR 100 UNIT/ML SUBCUT SCH ×4 (08:17→21:00)
[2019-05-06] MEDS: PANTOPRAZOLE 40 MG TABLET PO SCH (08:44)
[2019-05-06] MEDS: amLODIPine 10 MG TABLET PO SCH (08:44)
[2019-05-06] MEDS: FERROUS SULFATE 325 MG TABLET PO SCH (08:45)
[2019-05-06] MEDS: ASPIRIN EC 81 MG TABLET PO SCH (08:45)
[2019-05-06] MEDS: hydrALAZINE 25 MG TABLET PO SCH ×2 (08:45→20:59)
[2019-05-06] MEDS: CINACALCET 30 MG TABLET PO SCH (08:45)
[2019-05-06] MEDS: VELPHORO 500 MG PO SCH ×3 (08:45→16:31)
[2019-05-06] MEDS: CHLORHEXIDINE 0.12% ORAL RINSE 60 ML BOTTLE SWISH/SPIT SCH ×2 (08:45→20:59)
[2019-05-06] MEDS: DOCUSATE SODIUM 100 MG CAPSULE PO SCH (08:45)
[2019-05-06] MEDS: oxyCODONE/ACETAMINOPHEN 5-325 MG TABLET PO PRN ×3 (08:48→21:00)
[2019-05-06] MEDS: SIMVASTATIN 10 MG TABLET PO SCH (20:59)
[2019-05-07 05:06] LABS: Basophils # 0.1 10*3/uL (0.0-0.2); Basophils % 0.7 % (0.0-0.8); Eosinophils # 0.5 10*3/uL (0.0-0.87); Eosinophils % 6.8 % (0.00-10.9); Hematocrit 27.1 VOL% (42.0-52.0); Hemoglobin 8.5 GM/DL (14.0-18.0); Immature Granulocytes % 0.4 %; Immature Granulocytes Absolute 0.03 #; Lymphocytes # 0.9 10*3/uL (1.4-4.0); Lymphocytes % 12.8 % (21.2-54.2); Mean Corpuscular HGB Conc 31.4 GM/DL (32-36); Mean Corpuscular Volume 94.1 FL (87-102); Mean Platelet Volume 11.3 FL (9.6-12.0); Monocytes % 15.8 % (1.7-12.7); Neutrophils % 63.5 % (38.7-73.9); Platelet Count 216 T/CUMM (130-400); Red Blood Count 2.88 MC/CUMM (3.8-5.5); Red Cell Distribution Width 16.9 % (9.3-17.3)
[2019-05-07 05:23] LABS: Alanine Aminotransferase 15 U/L (16-61); Albumin 2.5 G/DL (3.4-5.0); Alkaline Phosphatase 71 U/L (45-117); Aspartate Amino Transferase 16 U/L (0-37); Bilirubin,Indirect 1.1 MG/DL (0.0-1.0); Blood Urea Nitrogen 78 MG/DL (7-18); Calcium 7.7 MG/DL (8.5-10.1); Estimated Glom Filtration Rate 5 ML/MIN; Glucose 165 MG/DL (74-106); Osmolality,Calculated 292.4 MOS/KG (273-304); Total Protein 6.4 G/DL (6.4-8.3)
[2019-05-07 05:28] LABS: Eosinophils 8 % (0-10); Hypochromasia 1+; Lymphocytes 14 % (20-55); Ovalocytes Slight; Platelet Estimate Adequate; Segmented Neutrophils 68 % (50-85); Total Cells Counted 100
[2019-05-07] MEDS: CINACALCET 30 MG TABLET PO SCH (09:05)
[2019-05-07] MEDS: DOCUSATE SODIUM 100 MG CAPSULE PO SCH (09:05)
[2019-05-07] MEDS: hydrALAZINE 25 MG TABLET PO SCH (09:06)
[2019-05-07] MEDS: INSULIN REGULAR 100 UNIT/ML SUBCUT SCH ×3 (09:06→17:56)
[2019-05-07] MEDS: ASPIRIN EC 81 MG TABLET PO SCH (09:06)
[2019-05-07] MEDS: PANTOPRAZOLE 40 MG TABLET PO SCH (09:06)
[2019-05-07] MEDS: amLODIPine 10 MG TABLET PO SCH (09:06)
[2019-05-07] MEDS: FERROUS SULFATE 325 MG TABLET PO SCH (09:06)
[2019-05-07] MEDS: CHLORHEXIDINE 0.12% ORAL RINSE 60 ML BOTTLE SWISH/SPIT SCH (09:07)
[2019-05-07] MEDS: VELPHORO 500 MG PO SCH ×3 (09:08→17:37)
[2019-05-07] MEDS: oxyCODONE/ACETAMINOPHEN 5-325 MG TABLET PO PRN (09:10)
[2019-05-07 11:46] VITALS: BP 144/75
== END 2019-05-07 20:33 | disposition home health service (06) | DRG 235 ==
LOC: N.TELEN 04-26 11:30 → N.CVR 05-01 10:20 → N.TELES 05-02 18:39

== ENCOUNTER 2019-06-12 13:49 | Inpatient (IN) ==
[2019-06-12 14:55] LABS: Basophils # 0.1 10*3/uL (0.0-0.2); Basophils % 0.6 % (0.0-0.8); Eosinophils # 0.2 10*3/uL (0.0-0.87); Eosinophils % 2.1 % (0.00-10.9); Hematocrit 31.8 VOL% (42.0-52.0); Hemoglobin 9.7 GM/DL (14.0-18.0); Immature Granulocytes % 0.5 %; Immature Granulocytes Absolute 0.05 #; Lymphocytes % 10.3 % (21.2-54.2); Mean Corpuscular HGB Conc 30.5 GM/DL (32-36); Mean Corpuscular Volume 89.1 FL (87-102); Mean Platelet Volume 10.6 FL (9.6-12.0); Monocytes % 7.7 % (1.7-12.7); Neutrophils % 78.8 % (38.7-73.9); Platelet Count 296 T/CUMM (130-400); Red Blood Count 3.57 MC/CUMM (3.8-5.5); Red Cell Distribution Width 18.6 % (9.3-17.3); White Blood Count 9.5 T/CUMM (4-12)
[2019-06-12] MEDS ORDERED: CLINDAMYCIN INJ 600 MG in PREMIX 1 EACH IV STA (14:58)
[2019-06-12 15:14] LABS: Alanine Aminotransferase 9 U/L (16-61); Albumin 2.2 G/DL (3.4-5.0); Alkaline Phosphatase 145 U/L (45-117); Aspartate Amino Transferase 23 U/L (0-37); Blood Urea Nitrogen 22 MG/DL (7-18); Estimated Glom Filtration Rate 12 ML/MIN; Glucose 298 MG/DL (74-106); Osmolality,Calculated 281.2 MOS/KG (273-304); Total Protein 8.1 G/DL (6.4-8.3)
[2019-06-12] MEDS ORDERED: ONDANSETRON 4 MG/2 ML VIAL IV PRN (17:30)
[2019-06-12] MEDS: SODIUM CHLORIDE 0.9% 1,000 ML IV SCH (18:20)
[2019-06-12] MEDS: PANTOPRAZOLE 40 MG TABLET PO SCH (21:12)
[2019-06-12] MEDS: CLINDAMYCIN INJ 600 MG in PREMIX 1 EACH IV SCH (22:04)
[2019-06-13] MEDS: SODIUM CHLORIDE 0.9% 1,000 ML IV SCH ×2 (03:59→18:28)
[2019-06-13] MEDS ORDERED: oxyCODONE/ACETAMINOPHEN 5-325 MG TABLET PO PRN (05:43)
[2019-06-13] MEDS ORDERED: NAPROXEN 500 MG TABLET PO PRN (05:43)
[2019-06-13] MEDS: LEVOFLOXACIN 250 MG TABLET PO SCH (06:14)
[2019-06-13] MEDS: CLINDAMYCIN INJ 600 MG in PREMIX 1 EACH IV SCH ×3 (06:14→23:56)
[2019-06-13] MEDS ORDERED: Sucroferric Oxyhydroxide [Velphoro] 500 MG PO SCH ×2 (08:00)
[2019-06-13] MEDS ORDERED: NON-FORMULARY MEDICATION (Omeprazole 40 MG) PO SCH (09:00)
[2019-06-13] MEDS: CINACALCET 30 MG TABLET PO SCH (09:44)
[2019-06-13] MEDS: FAMOTIDINE 20 MG TABLET PO SCH (09:45)
[2019-06-13] MEDS: ASPIRIN EC 81 MG TABLET PO SCH (09:45)
[2019-06-13] MEDS: PANTOPRAZOLE 40 MG TABLET PO SCH (09:45)
[2019-06-13] MEDS: hydrALAZINE 25 MG TABLET PO SCH ×3 (09:45→22:46)
[2019-06-13] MEDS: LOSARTAN 25 MG TABLET PO SCH (09:49)
[2019-06-13] MEDS ORDERED: GLUCAGON 1 MG VIAL IM PRN (14:40)
[2019-06-13] MEDS ORDERED: DEXTROSE 10% 250 ML BAG IV PRN (14:40)
[2019-06-13] MEDS: INSULIN LISPRO 100 UNIT/ML SUBCUT SCH ×2 (17:33→22:48)
[2019-06-13] MEDS: SIMVASTATIN 10 MG TABLET PO SCH (22:46)
[2019-06-13] MEDS: amLODIPine 10 MG TABLET PO SCH (22:46)
[2019-06-13] MEDS: INSULIN GLARGINE 100 UNIT/ML SUBCUT SCH (22:49)
[2019-06-14 07:02] LABS: Basophils # 0.1 10*3/uL (0.0-0.2); Basophils % 0.9 % (0.0-0.8); Eosinophils # 0.6 10*3/uL (0.0-0.87); Eosinophils % 7.2 % (0.00-10.9); Hematocrit 28.3 VOL% (42.0-52.0); Hemoglobin 8.5 GM/DL (14.0-18.0); Immature Granulocytes % 0.6 %; Immature Granulocytes Absolute 0.05 #; Lymphocytes # 1.2 10*3/uL (1.4-4.0); Lymphocytes % 15.3 % (21.2-54.2); Mean Corpuscular Volume 89.3 FL (87-102); Mean Platelet Volume 10.5 FL (9.6-12.0); Monocytes % 11.1 % (1.7-12.7); Neutrophils % 64.9 % (38.7-73.9); Platelet Count 255 T/CUMM (130-400); Red Blood Count 3.17 MC/CUMM (3.8-5.5); Red Cell Distribution Width 18.5 % (9.3-17.3); White Blood Count 7.8 T/CUMM (4-12)
[2019-06-14] MEDS: LEVOFLOXACIN 250 MG TABLET PO SCH (07:15)
[2019-06-14] MEDS: CLINDAMYCIN INJ 600 MG in PREMIX 1 EACH IV SCH ×3 (07:16→22:37)
[2019-06-14 07:18] LABS: Calcium 8.5 MG/DL (8.5-10.1)
[2019-06-14] MEDS: INSULIN LISPRO 100 UNIT/ML SUBCUT SCH ×4 (09:02→21:03)
[2019-06-14] MEDS: FAMOTIDINE 20 MG TABLET PO SCH (10:21)
[2019-06-14] MEDS: LOSARTAN 25 MG TABLET PO SCH (10:21)
[2019-06-14] MEDS: hydrALAZINE 25 MG TABLET PO SCH ×3 (10:21→20:54)
[2019-06-14] MEDS: ASPIRIN EC 81 MG TABLET PO SCH (10:21)
[2019-06-14] MEDS: PANTOPRAZOLE 40 MG TABLET PO SCH (10:21)
[2019-06-14] MEDS: CINACALCET 30 MG TABLET PO SCH (10:21)
[2019-06-14] MEDS: SIMVASTATIN 10 MG TABLET PO SCH (20:53)
[2019-06-14] MEDS: amLODIPine 10 MG TABLET PO SCH (20:53)
[2019-06-14] MEDS: INSULIN GLARGINE 100 UNIT/ML SUBCUT SCH (21:02)
[2019-06-15] MEDS: CLINDAMYCIN INJ 600 MG in PREMIX 1 EACH IV SCH ×3 (06:09→23:04)
[2019-06-15 06:10] LABS: Basophils # 0.1 10*3/uL (0.0-0.2); Basophils % 0.9 % (0.0-0.8); Eosinophils # 0.5 10*3/uL (0.0-0.87); Eosinophils % 6.3 % (0.00-10.9); Hematocrit 28.6 VOL% (42.0-52.0); Hemoglobin 8.6 GM/DL (14.0-18.0); Immature Granulocytes % 0.3 %; Immature Granulocytes Absolute 0.02 #; Lymphocytes # 1.2 10*3/uL (1.4-4.0); Lymphocytes % 16.1 % (21.2-54.2); Mean Corpuscular HGB Conc 30.1 GM/DL (32-36); Mean Corpuscular Volume 89.9 FL (87-102); Mean Platelet Volume 11.2 FL (9.6-12.0); Monocytes % 11.3 % (1.7-12.7); Neutrophils % 65.1 % (38.7-73.9); Platelet Count 243 T/CUMM (130-400); Red Blood Count 3.18 MC/CUMM (3.8-5.5); Red Cell Distribution Width 18.4 % (9.3-17.3); White Blood Count 7.6 T/CUMM (4-12)
[2019-06-15 06:32] LABS: Calcium 8.2 MG/DL (8.5-10.1); Osmolality,Calculated 275.5 MOS/KG (273-304)
[2019-06-15] MEDS: INSULIN LISPRO 100 UNIT/ML SUBCUT SCH ×4 (08:14→20:13)
[2019-06-15] MEDS: hydrALAZINE 25 MG TABLET PO SCH ×3 (08:17→20:13)
[2019-06-15] MEDS: FAMOTIDINE 20 MG TABLET PO SCH (08:17)
[2019-06-15] MEDS: CINACALCET 30 MG TABLET PO SCH (08:17)
[2019-06-15] MEDS: PANTOPRAZOLE 40 MG TABLET PO SCH (08:17)
[2019-06-15] MEDS: ASPIRIN EC 81 MG TABLET PO SCH (08:17)
[2019-06-15] MEDS: LOSARTAN 25 MG TABLET PO SCH (08:17)
[2019-06-15] MEDS ORDERED: SODIUM CHLORIDE 0.9% 250 ML IV SCH (09:00)
[2019-06-15] MEDS ORDERED: GLUCAGON 1 MG VIAL IM PRN (09:54)
[2019-06-15] MEDS ORDERED: DEXTROSE 50% 25 GM/50 ML VIAL IV PRN (09:54)
[2019-06-15] MEDS ORDERED: propofoL 200 MG/20 ML VIAL IV ONE (10:05)
[2019-06-15] MEDS ORDERED: fentaNYL 100 MCG/2 ML VIAL ONE (10:06)
[2019-06-15] MEDS ORDERED: SEVOFLURANE 1 UNIT/15 MINUTE INH ONE (10:06)
[2019-06-15] MEDS ORDERED: LIDOCAINE 2% 5 ML VIAL ONE (10:06)
[2019-06-15] MEDS ORDERED: ePHEDrine 50 MG/ML AMP ONE (10:07)
[2019-06-15] MEDS ORDERED: ONDANSETRON 4 MG/2 ML VIAL ONE (10:07)
[2019-06-15] MEDS: amLODIPine 10 MG TABLET PO SCH (20:13)
[2019-06-15] MEDS: INSULIN GLARGINE 100 UNIT/ML SUBCUT SCH (20:13)
[2019-06-15] MEDS: SIMVASTATIN 10 MG TABLET PO SCH (20:13)
[2019-06-16] MEDS: CLINDAMYCIN INJ 600 MG in PREMIX 1 EACH IV SCH ×3 (06:08→23:15)
[2019-06-16 06:30] LABS: Basophils # 0.1 10*3/uL (0.0-0.2); Basophils % 0.8 % (0.0-0.8); Eosinophils # 0.6 10*3/uL (0.0-0.87); Eosinophils % 8.1 % (0.00-10.9); Hematocrit 28.3 VOL% (42.0-52.0); Hemoglobin 8.8 GM/DL (14.0-18.0); Immature Granulocytes % 0.6 %; Immature Granulocytes Absolute 0.04 #; Lymphocytes # 0.9 10*3/uL (1.4-4.0); Lymphocytes % 12.6 % (21.2-54.2); Mean Corpuscular HGB Conc 31.1 GM/DL (32-36); Mean Corpuscular Volume 87.9 FL (87-102); Mean Platelet Volume 10.9 FL (9.6-12.0); Monocytes % 10.6 % (1.7-12.7); Neutrophils % 67.3 % (38.7-73.9); Platelet Count 230 T/CUMM (130-400); Red Blood Count 3.22 MC/CUMM (3.8-5.5); Red Cell Distribution Width 18.4 % (9.3-17.3); White Blood Count 7.2 T/CUMM (4-12)
[2019-06-16 07:06] LABS: Calcium 7.8 MG/DL (8.5-10.1); Osmolality,Calculated 276.4 MOS/KG (273-304)
[2019-06-16] MEDS: ASPIRIN EC 81 MG TABLET PO SCH (08:53)
[2019-06-16] MEDS: FAMOTIDINE 20 MG TABLET PO SCH (08:53)
[2019-06-16] MEDS: PANTOPRAZOLE 40 MG TABLET PO SCH (08:53)
[2019-06-16] MEDS: hydrALAZINE 25 MG TABLET PO SCH ×3 (08:53→20:44)
[2019-06-16] MEDS: CINACALCET 30 MG TABLET PO SCH (08:53)
[2019-06-16] MEDS: INSULIN LISPRO 100 UNIT/ML SUBCUT SCH ×4 (08:53→20:48)
[2019-06-16] MEDS: LOSARTAN 25 MG TABLET PO SCH (08:53)
[2019-06-16] MEDS: SODIUM HYPOCHLORITE 0.25% IRRIG 473 ML BOTTLE TOP SCH (11:05)
[2019-06-16] MEDS: amLODIPine 10 MG TABLET PO SCH (20:44)
[2019-06-16] MEDS: SIMVASTATIN 10 MG TABLET PO SCH (20:44)
[2019-06-16] MEDS: INSULIN GLARGINE 100 UNIT/ML SUBCUT SCH (20:49)
[2019-06-16] MEDS: diphenhydrAMINE CAP 50 MG CAPSULE PO PRN (23:35)
[2019-06-17 06:15] LABS: Calcium 7.7 MG/DL (8.5-10.1); Osmolality,Calculated 271.5 MOS/KG (273-304)
[2019-06-17] MEDS: CLINDAMYCIN INJ 600 MG in PREMIX 1 EACH IV SCH ×2 (06:15→15:35)
[2019-06-17] MEDS: INSULIN LISPRO 100 UNIT/ML SUBCUT SCH ×4 (07:52→20:49)
[2019-06-17] MEDS: CINACALCET 30 MG TABLET PO SCH (09:58)
[2019-06-17] MEDS: PANTOPRAZOLE 40 MG TABLET PO SCH (09:59)
[2019-06-17] MEDS: hydrALAZINE 25 MG TABLET PO SCH ×3 (09:59→20:50)
[2019-06-17] MEDS: FAMOTIDINE 20 MG TABLET PO SCH (09:59)
[2019-06-17] MEDS: ASPIRIN EC 81 MG TABLET PO SCH (09:59)
[2019-06-17] MEDS: DOCUSATE SODIUM 100 MG CAPSULE PO SCH ×2 (10:00→20:49)
[2019-06-17] MEDS: LOSARTAN 25 MG TABLET PO SCH (10:02)
[2019-06-17] MEDS: SODIUM HYPOCHLORITE 0.25% IRRIG 473 ML BOTTLE TOP SCH (13:00)
[2019-06-17] MEDS: amLODIPine 10 MG TABLET PO SCH (20:50)
[2019-06-17] MEDS: INSULIN GLARGINE 100 UNIT/ML SUBCUT SCH (20:50)
[2019-06-17] MEDS: SIMVASTATIN 10 MG TABLET PO SCH (20:50)
[2019-06-17] MEDS: diphenhydrAMINE CAP 50 MG CAPSULE PO PRN (20:50)
[2019-06-18] MEDS: CLINDAMYCIN INJ 600 MG in PREMIX 1 EACH IV SCH ×4 (00:17→23:26)
[2019-06-18 06:39] LABS: Basophils # 0.1 10*3/uL (0.0-0.2); Eosinophils # 0.6 10*3/uL (0.0-0.87); Eosinophils % 10.5 % (0.00-10.9); Hematocrit 27.9 VOL% (42.0-52.0); Hemoglobin 8.5 GM/DL (14.0-18.0); Immature Granulocytes % 0.5 %; Immature Granulocytes Absolute 0.03 #; Lymphocytes # 1.2 10*3/uL (1.4-4.0); Lymphocytes % 19.7 % (21.2-54.2); Mean Corpuscular HGB Conc 30.5 GM/DL (32-36); Mean Corpuscular Volume 89.1 FL (87-102); Mean Platelet Volume 10.8 FL (9.6-12.0); Monocytes % 11.3 % (1.7-12.7); Platelet Count 230 T/CUMM (130-400); Red Blood Count 3.13 MC/CUMM (3.8-5.5); White Blood Count 6.1 T/CUMM (4-12)
[2019-06-18 07:01] LABS: Calcium 7.7 MG/DL (8.5-10.1); Osmolality,Calculated 275.7 MOS/KG (273-304)
[2019-06-18] MEDS: INSULIN LISPRO 100 UNIT/ML SUBCUT SCH ×4 (10:19→23:10)
[2019-06-18] MEDS: DOCUSATE SODIUM 100 MG CAPSULE PO SCH ×2 (12:41→23:07)
[2019-06-18] MEDS: LOSARTAN 25 MG TABLET PO SCH (12:41)
[2019-06-18] MEDS: CINACALCET 30 MG TABLET PO SCH (12:41)
[2019-06-18] MEDS: PANTOPRAZOLE 40 MG TABLET PO SCH (12:41)
[2019-06-18] MEDS: hydrALAZINE 25 MG TABLET PO SCH ×3 (12:41→23:07)
[2019-06-18] MEDS: ASPIRIN EC 81 MG TABLET PO SCH (12:41)
[2019-06-18] MEDS: SODIUM HYPOCHLORITE 0.25% IRRIG 473 ML BOTTLE TOP SCH (12:42)
[2019-06-18] MEDS: FAMOTIDINE 20 MG TABLET PO SCH (12:42)
[2019-06-18] MEDS: SIMVASTATIN 10 MG TABLET PO SCH (23:07)
[2019-06-18] MEDS: amLODIPine 10 MG TABLET PO SCH (23:07)
[2019-06-18] MEDS: INSULIN GLARGINE 100 UNIT/ML SUBCUT SCH (23:10)
[2019-06-18] MEDS: diphenhydrAMINE CAP 50 MG CAPSULE PO PRN (23:23)
[2019-06-19 05:53] LABS: Basophils # 0.1 10*3/uL (0.0-0.2); Basophils % 1.3 % (0.0-0.8); Eosinophils # 0.5 10*3/uL (0.0-0.87); Eosinophils % 9.9 % (0.00-10.9); Hemoglobin 8.4 GM/DL (14.0-18.0); Immature Granulocytes % 0.4 %; Immature Granulocytes Absolute 0.02 #; Lymphocytes # 1.1 10*3/uL (1.4-4.0); Lymphocytes % 19.6 % (21.2-54.2); Mean Corpuscular HGB Conc 31.1 GM/DL (32-36); Mean Corpuscular Volume 86.8 FL (87-102); Mean Platelet Volume 10.8 FL (9.6-12.0); Monocytes % 12.5 % (1.7-12.7); Neutrophils % 56.3 % (38.7-73.9); Platelet Count 222 T/CUMM (130-400); Red Blood Count 3.11 MC/CUMM (3.8-5.5); Red Cell Distribution Width 17.9 % (9.3-17.3); White Blood Count 5.5 T/CUMM (4-12)
[2019-06-19 06:20] LABS: Calcium 7.6 MG/DL (8.5-10.1); Osmolality,Calculated 274.5 MOS/KG (273-304)
[2019-06-19] MEDS: CLINDAMYCIN INJ 600 MG in PREMIX 1 EACH IV SCH ×2 (07:15→15:40)
[2019-06-19] MEDS: INSULIN LISPRO 100 UNIT/ML SUBCUT SCH ×4 (09:57→21:44)
[2019-06-19] MEDS: DOCUSATE SODIUM 100 MG CAPSULE PO SCH ×2 (09:57→21:35)
[2019-06-19] MEDS: PANTOPRAZOLE 40 MG TABLET PO SCH (09:58)
[2019-06-19] MEDS: ASPIRIN EC 81 MG TABLET PO SCH (09:58)
[2019-06-19] MEDS: FAMOTIDINE 20 MG TABLET PO SCH (09:58)
[2019-06-19] MEDS: hydrALAZINE 25 MG TABLET PO SCH ×3 (09:58→21:34)
[2019-06-19] MEDS: LOSARTAN 25 MG TABLET PO SCH (09:58)
[2019-06-19] MEDS: CINACALCET 30 MG TABLET PO SCH (09:58)
[2019-06-19] MEDS: SIMVASTATIN 10 MG TABLET PO SCH (21:34)
[2019-06-19] MEDS: amLODIPine 10 MG TABLET PO SCH (21:35)
[2019-06-19] MEDS: diphenhydrAMINE CAP 50 MG CAPSULE PO PRN (21:43)
[2019-06-19] MEDS: INSULIN GLARGINE 100 UNIT/ML SUBCUT SCH (21:44)
[2019-06-20] MEDS: CLINDAMYCIN 300 MG CAPSULE PO SCH ×4 (00:07→21:32)
[2019-06-20 06:14] LABS: Basophils # 0.1 10*3/uL (0.0-0.2); Basophils % 1.3 % (0.0-0.8); Eosinophils # 0.5 10*3/uL (0.0-0.87); Hematocrit 28.8 VOL% (42.0-52.0); Immature Granulocytes % 0.5 %; Immature Granulocytes Absolute 0.03 #; Lymphocytes # 1.2 10*3/uL (1.4-4.0); Mean Corpuscular HGB Conc 31.3 GM/DL (32-36); Mean Corpuscular Volume 86.5 FL (87-102); Mean Platelet Volume 10.3 FL (9.6-12.0); Monocytes % 11.5 % (1.7-12.7); Neutrophils % 56.7 % (38.7-73.9); Platelet Count 224 T/CUMM (130-400); Red Blood Count 3.33 MC/CUMM (3.8-5.5); Red Cell Distribution Width 17.7 % (9.3-17.3); White Blood Count 5.6 T/CUMM (4-12)
[2019-06-20 06:36] LABS: Calcium 7.7 MG/DL (8.5-10.1); Osmolality,Calculated 277.5 MOS/KG (273-304)
[2019-06-20] MEDS: INSULIN LISPRO 100 UNIT/ML SUBCUT SCH ×4 (08:16→20:38)
[2019-06-20] MEDS: FAMOTIDINE 20 MG TABLET PO SCH (08:17)
[2019-06-20] MEDS: CINACALCET 30 MG TABLET PO SCH (08:17)
[2019-06-20] MEDS: PANTOPRAZOLE 40 MG TABLET PO SCH (08:18)
[2019-06-20] MEDS: hydrALAZINE 25 MG TABLET PO SCH ×3 (08:18→20:37)
[2019-06-20] MEDS: DOCUSATE SODIUM 100 MG CAPSULE PO SCH (08:18)
[2019-06-20] MEDS: ASPIRIN EC 81 MG TABLET PO SCH (08:18)
[2019-06-20] MEDS: LOSARTAN 25 MG TABLET PO SCH (08:21)
[2019-06-20] MEDS: SIMVASTATIN 10 MG TABLET PO SCH (20:37)
[2019-06-20] MEDS: amLODIPine 10 MG TABLET PO SCH (20:37)
[2019-06-20] MEDS: diphenhydrAMINE CAP 50 MG CAPSULE PO PRN (20:37)
[2019-06-20] MEDS: INSULIN GLARGINE 100 UNIT/ML SUBCUT SCH (20:37)
[2019-06-21 05:47] LABS: Calcium 7.8 MG/DL (8.5-10.1); Osmolality,Calculated 271.4 MOS/KG (273-304)
[2019-06-21] MEDS: CLINDAMYCIN 300 MG CAPSULE PO SCH ×3 (05:56→21:07)
[2019-06-21] MEDS: PANTOPRAZOLE 40 MG TABLET PO SCH (08:56)
[2019-06-21] MEDS: CINACALCET 30 MG TABLET PO SCH (08:56)
[2019-06-21] MEDS: FAMOTIDINE 20 MG TABLET PO SCH (08:56)
[2019-06-21] MEDS: INSULIN LISPRO 100 UNIT/ML SUBCUT SCH ×4 (08:57→21:07)
[2019-06-21] MEDS: LOSARTAN 25 MG TABLET PO SCH (08:57)
[2019-06-21] MEDS: DOCUSATE SODIUM 100 MG CAPSULE PO SCH (08:57)
[2019-06-21] MEDS: hydrALAZINE 25 MG TABLET PO SCH ×3 (08:57→21:07)
[2019-06-21] MEDS: ASPIRIN EC 81 MG TABLET PO SCH (08:57)
[2019-06-21] MEDS: diphenhydrAMINE CAP 50 MG CAPSULE PO PRN (21:07)
[2019-06-21] MEDS: SIMVASTATIN 10 MG TABLET PO SCH (21:07)
[2019-06-21] MEDS: INSULIN GLARGINE 100 UNIT/ML SUBCUT SCH (21:07)
[2019-06-21] MEDS: amLODIPine 10 MG TABLET PO SCH (21:07)
[2019-06-22] MEDS: CLINDAMYCIN 300 MG CAPSULE PO SCH ×3 (05:31→21:55)
[2019-06-22 06:26] LABS: Basophils # 0.1 10*3/uL (0.0-0.2); Basophils % 1.4 % (0.0-0.8); Eosinophils # 0.5 10*3/uL (0.0-0.87); Eosinophils % 8.2 % (0.00-10.9); Hematocrit 28.2 VOL% (42.0-52.0); Hemoglobin 8.5 GM/DL (14.0-18.0); Immature Granulocytes % 0.3 %; Immature Granulocytes Absolute 0.02 #; Lymphocytes # 1.1 10*3/uL (1.4-4.0); Lymphocytes % 18.9 % (21.2-54.2); Mean Corpuscular HGB Conc 30.1 GM/DL (32-36); Mean Platelet Volume 10.8 FL (9.6-12.0); Monocytes % 11.6 % (1.7-12.7); Neutrophils % 59.6 % (38.7-73.9); Platelet Count 220 T/CUMM (130-400); Red Blood Count 3.17 MC/CUMM (3.8-5.5); Red Cell Distribution Width 17.3 % (9.3-17.3); White Blood Count 5.9 T/CUMM (4-12)
[2019-06-22 06:51] LABS: Calcium 7.6 MG/DL (8.5-10.1); Osmolality,Calculated 273.7 MOS/KG (273-304)
[2019-06-22] MEDS: INSULIN LISPRO 100 UNIT/ML SUBCUT SCH ×4 (08:10→21:54)
[2019-06-22] MEDS: hydrALAZINE 25 MG TABLET PO SCH ×3 (13:21→21:54)
[2019-06-22] MEDS: DOCUSATE SODIUM 100 MG CAPSULE PO SCH ×2 (13:25→13:33)
[2019-06-22] MEDS: ASPIRIN EC 81 MG TABLET PO SCH (13:25)
[2019-06-22] MEDS: LOSARTAN 25 MG TABLET PO SCH (13:25)
[2019-06-22] MEDS: FAMOTIDINE 20 MG TABLET PO SCH (13:25)
[2019-06-22] MEDS: PANTOPRAZOLE 40 MG TABLET PO SCH (13:26)
[2019-06-22] MEDS: CINACALCET 30 MG TABLET PO SCH (13:26)
[2019-06-22] MEDS: ACETAMINOPHEN 325 MG TABLET PO PRN (13:30)
[2019-06-22] MEDS: INSULIN GLARGINE 100 UNIT/ML SUBCUT SCH (21:52)
[2019-06-22] MEDS: SIMVASTATIN 10 MG TABLET PO SCH (21:55)
[2019-06-22] MEDS: amLODIPine 10 MG TABLET PO SCH (21:55)
[2019-06-22] MEDS: diphenhydrAMINE CAP 50 MG CAPSULE PO PRN (21:56)
[2019-06-23] MEDS: CLINDAMYCIN 300 MG CAPSULE PO SCH ×3 (06:02→22:50)
[2019-06-23 06:37] LABS: Calcium 8.2 MG/DL (8.5-10.1); Osmolality,Calculated 271.7 MOS/KG (273-304)
[2019-06-23] MEDS: INSULIN LISPRO 100 UNIT/ML SUBCUT SCH ×4 (08:39→20:34)
[2019-06-23] MEDS: ASPIRIN EC 81 MG TABLET PO SCH (09:32)
[2019-06-23] MEDS: hydrALAZINE 25 MG TABLET PO SCH ×3 (09:32→20:33)
[2019-06-23] MEDS: LOSARTAN 25 MG TABLET PO SCH (09:32)
[2019-06-23] MEDS: DOCUSATE SODIUM 100 MG CAPSULE PO SCH ×2 (09:32→09:45)
[2019-06-23] MEDS: FAMOTIDINE 20 MG TABLET PO SCH (09:33)
[2019-06-23] MEDS: CINACALCET 30 MG TABLET PO SCH (09:33)
[2019-06-23] MEDS: PANTOPRAZOLE 40 MG TABLET PO SCH (09:33)
[2019-06-23] MEDS: SIMVASTATIN 10 MG TABLET PO SCH (20:33)
[2019-06-23] MEDS: amLODIPine 10 MG TABLET PO SCH (20:33)
[2019-06-23] MEDS: diphenhydrAMINE CAP 50 MG CAPSULE PO PRN (20:33)
[2019-06-23] MEDS: INSULIN GLARGINE 100 UNIT/ML SUBCUT SCH (20:34)
[2019-06-24] MEDS: CLINDAMYCIN 300 MG CAPSULE PO SCH ×3 (05:18→21:27)
[2019-06-24 06:34] LABS: Calcium 7.8 MG/DL (8.5-10.1); Osmolality,Calculated 279.2 MOS/KG (273-304)
[2019-06-24] MEDS: INSULIN LISPRO 100 UNIT/ML SUBCUT SCH ×4 (08:04→21:30)
[2019-06-24] MEDS: FAMOTIDINE 20 MG TABLET PO SCH (09:33)
[2019-06-24] MEDS: ASPIRIN EC 81 MG TABLET PO SCH (09:34)
[2019-06-24] MEDS: LOSARTAN 25 MG TABLET PO SCH (09:34)
[2019-06-24] MEDS: PANTOPRAZOLE 40 MG TABLET PO SCH (09:34)
[2019-06-24] MEDS: CINACALCET 30 MG TABLET PO SCH (09:34)
[2019-06-24] MEDS: hydrALAZINE 25 MG TABLET PO SCH ×3 (09:34→21:28)
[2019-06-24] MEDS: DOCUSATE SODIUM 100 MG CAPSULE PO SCH ×2 (09:34→09:36)
[2019-06-24] MEDS: SIMVASTATIN 10 MG TABLET PO SCH (21:27)
[2019-06-24] MEDS: amLODIPine 10 MG TABLET PO SCH (21:28)
[2019-06-24] MEDS: INSULIN GLARGINE 100 UNIT/ML SUBCUT SCH (21:29)
[2019-06-24] MEDS: ACETAMINOPHEN 325 MG TABLET PO PRN (21:48)
[2019-06-24] MEDS: diphenhydrAMINE CAP 50 MG CAPSULE PO PRN (21:49)
[2019-06-25] MEDS: CLINDAMYCIN 300 MG CAPSULE PO SCH ×2 (05:26→15:15)
[2019-06-25 06:57] LABS: Calcium 7.7 MG/DL (8.5-10.1); Osmolality,Calculated 279.7 MOS/KG (273-304)
[2019-06-25] MEDS: INSULIN LISPRO 100 UNIT/ML SUBCUT SCH ×2 (09:02→13:20)
[2019-06-25 13:06] VITALS: BP 160/76
[2019-06-25] MEDS: LOSARTAN 25 MG TABLET PO SCH (13:08)
[2019-06-25] MEDS: FAMOTIDINE 20 MG TABLET PO SCH (13:08)
[2019-06-25] MEDS: ASPIRIN EC 81 MG TABLET PO SCH (13:08)
[2019-06-25] MEDS: PANTOPRAZOLE 40 MG TABLET PO SCH (13:08)
[2019-06-25] MEDS: CINACALCET 30 MG TABLET PO SCH (13:08)
[2019-06-25] MEDS: hydrALAZINE 25 MG TABLET PO SCH ×2 (13:08→15:15)
[2019-06-25] MEDS: DOCUSATE SODIUM 100 MG CAPSULE PO SCH (13:19)
== END 2019-06-25 15:35 | disposition home health service (06) | DRG 856 ==
LOC: N.ED 13:49 → N.TELES 16:21 → N.TELEN 17:15 → N.EDINP 17:20 → SUPCPDRO 17:20

== ENCOUNTER 2019-07-22 20:53 | Inpatient (IN) ==
[2019-07-22] MEDS ORDERED: ZALEPLON 5 MG CAPSULE PO PRN (23:46)
[2019-07-22] MEDS ORDERED: ACETAMINOPHEN 325 MG TABLET PO PRN (23:53)
[2019-07-22] MEDS ORDERED: DEXTROSE 50% 25 GM/50 ML VIAL IV PRN (23:53)
[2019-07-22] MEDS ORDERED: ONDANSETRON 4 MG/2 ML VIAL IV PRN (23:53)
[2019-07-22] MEDS ORDERED: GLUCAGON 1 MG VIAL IM PRN (23:53)
[2019-07-23] MEDS: diphenhydrAMINE CAP 25 MG CAPSULE PO PRN (00:02)
[2019-07-23] MEDS ORDERED: VANCOMYCIN INJ 1,000 MG in SODIUM CHLORIDE 0.9% 250 ML IV PRN (00:08)
[2019-07-23] MEDS: PIPERACILLIN/TAZOBACTAM 3,375 MG in SODIUM CHLORIDE 0.9% 100 ML IV SCH ×2 (00:25→17:02)
[2019-07-23 01:31] LABS: Basophils # 0.1 10*3/uL (0.0-0.2); Basophils % 0.5 % (0.0-0.8); Eosinophils # 0.2 10*3/uL (0.0-0.87); Eosinophils % 1.1 % (0.00-10.9); Hematocrit 34.8 VOL% (42.0-52.0); Hemoglobin 10.8 GM/DL (14.0-18.0); Immature Granulocytes % 0.8 %; Immature Granulocytes Absolute 0.15 #; Lymphocytes # 1.6 10*3/uL (1.4-4.0); Lymphocytes % 8.6 % (21.2-54.2); Mean Corpuscular Volume 85.7 FL (87-102); Mean Platelet Volume 10.6 FL (9.6-12.0); Monocytes % 9.7 % (1.7-12.7); Neutrophils % 79.3 % (38.7-73.9); Platelet Count 212 T/CUMM (130-400); Red Blood Count 4.06 MC/CUMM (3.8-5.5); Red Cell Distribution Width 17.4 % (9.3-17.3); White Blood Count 18.2 T/CUMM (4-12)
[2019-07-23 02:28] LABS: Albumin 2.3 G/DL (3.4-5.0); Bilirubin,Total 1.8 MG/DL (0.2-1.0); Calcium 10.1 MG/DL (8.5-10.1); Osmolality,Calculated 272.9 MOS/KG (273-304); Total Protein 8.3 G/DL (6.4-8.3)
[2019-07-23] MEDS ORDERED: VANCOMYCIN INJ 1,500 MG in SODIUM CHLORIDE 0.9% 500 ML IV ONE (05:00)
[2019-07-23] MEDS: INSULIN LISPRO 100 UNIT/ML SUBCUT SCH ×4 (07:37→20:48)
[2019-07-23] MEDS: SODIUM HYPOCHLORITE 0.25% IRRIG 473 ML BOTTLE TOP SCH (12:00)
[2019-07-23] MEDS ORDERED: VANCOMYCIN INJ 1,000 MG in SODIUM CHLORIDE 0.9% 250 ML IV ONE (17:00)
[2019-07-23] MEDS: NON-FORMULARY MEDICATION (Sucroferric Oxyhydroxide [Velphoro] 500 MG) PO SCH ×3 (17:00→18:04)
[2019-07-23] MEDS: hydrALAZINE 25 MG TABLET PO SCH ×2 (17:03→20:49)
[2019-07-23] MEDS: amLODIPine 10 MG TABLET PO SCH (20:48)
[2019-07-23] MEDS: SIMVASTATIN 10 MG TABLET PO SCH (20:49)
[2019-07-24] MEDS: PIPERACILLIN/TAZOBACTAM 3,375 MG in SODIUM CHLORIDE 0.9% 100 ML IV SCH ×2 (01:07→17:02)
[2019-07-24 05:21] LABS: Basophils # 0.1 10*3/uL (0.0-0.2); Basophils % 0.4 % (0.0-0.8); Eosinophils # 0.1 10*3/uL (0.0-0.87); Eosinophils % 0.7 % (0.00-10.9); Hematocrit 32.3 VOL% (42.0-52.0); Hemoglobin 10.2 GM/DL (14.0-18.0); Immature Granulocytes % 0.9 %; Immature Granulocytes Absolute 0.17 #; Lymphocytes # 1.1 10*3/uL (1.4-4.0); Lymphocytes % 5.8 % (21.2-54.2); Mean Corpuscular HGB Conc 31.6 GM/DL (32-36); Mean Corpuscular Volume 83.5 FL (87-102); Mean Platelet Volume 10.8 FL (9.6-12.0); Monocytes % 8.5 % (1.7-12.7); NRBC # 0.03 10*3/uL; Neutrophils % 83.7 % (38.7-73.9); Platelet Count 239 T/CUMM (130-400); Red Blood Count 3.87 MC/CUMM (3.8-5.5); Red Cell Distribution Width 17.2 % (9.3-17.3); White Blood Count 18.3 T/CUMM (4-12)
[2019-07-24 05:58] LABS: Calcium 9.8 MG/DL (8.5-10.1); Osmolality,Calculated 274.5 MOS/KG (273-304)
[2019-07-24] MEDS: NON-FORMULARY MEDICATION (Sucroferric Oxyhydroxide [Velphoro] 500 MG) PO SCH ×5 (07:37→17:03)
[2019-07-24] MEDS: INSULIN LISPRO 100 UNIT/ML SUBCUT SCH ×4 (07:38→21:44)
[2019-07-24] MEDS: hydrALAZINE 25 MG TABLET PO SCH ×3 (09:35→20:16)
[2019-07-24] MEDS: CINACALCET 30 MG TABLET PO SCH (09:35)
[2019-07-24] MEDS: MULTIVITAMIN (BEROCCA) TABLET PO SCH (09:35)
[2019-07-24] MEDS: ASPIRIN EC 81 MG TABLET PO SCH (09:35)
[2019-07-24] MEDS: SODIUM HYPOCHLORITE 0.25% IRRIG 473 ML BOTTLE TOP SCH (09:35)
[2019-07-24] MEDS: FAMOTIDINE 20 MG TABLET PO SCH (09:36)
[2019-07-24] MEDS: LOSARTAN 25 MG TABLET PO SCH (09:41)
[2019-07-24] MEDS ORDERED: LIDOCAINE 1% 20 ML VIAL ONE (10:00)
[2019-07-24] MEDS ORDERED: propofoL 200 MG/20 ML VIAL IV ONE (11:29)
[2019-07-24] MEDS ORDERED: SEVOFLURANE 1 UNIT/15 MINUTE INH ONE (11:30)
[2019-07-24] MEDS ORDERED: LIDOCAINE 2% 5 ML VIAL ONE (11:30)
[2019-07-24] MEDS ORDERED: ONDANSETRON 4 MG/2 ML VIAL ONE (11:30)
[2019-07-24] MEDS ORDERED: fentaNYL 100 MCG/2 ML VIAL ONE (11:30)
[2019-07-24] MEDS ORDERED: SODIUM CHLORIDE 0.9% 250 ML IV ONE (11:30)
[2019-07-24] MEDS ORDERED: MIDAZOLAM 2 MG/2 ML VIAL ONE (11:31)
[2019-07-24] MEDS: SIMVASTATIN 10 MG TABLET PO SCH (20:16)
[2019-07-24] MEDS: amLODIPine 10 MG TABLET PO SCH (20:17)
[2019-07-24] MEDS: diphenhydrAMINE CAP 25 MG CAPSULE PO PRN (20:22)
[2019-07-24] MEDS: MORPHINE 4 MG/1 ML VIAL IV PRN (20:22)
[2019-07-25] MEDS: PIPERACILLIN/TAZOBACTAM 3,375 MG in SODIUM CHLORIDE 0.9% 100 ML IV SCH ×2 (04:18→16:20)
[2019-07-25 05:49] LABS: Basophils # 0.1 10*3/uL (0.0-0.2); Basophils % 0.3 % (0.0-0.8); Eosinophils # 0.2 10*3/uL (0.0-0.87); Eosinophils % 1.5 % (0.00-10.9); Hematocrit 34.2 VOL% (42.0-52.0); Hemoglobin 10.5 GM/DL (14.0-18.0); Immature Granulocytes % 0.9 %; Immature Granulocytes Absolute 0.14 #; Lymphocytes # 1.1 10*3/uL (1.4-4.0); Mean Corpuscular HGB Conc 30.7 GM/DL (32-36); Mean Corpuscular Volume 84.4 FL (87-102); Mean Platelet Volume 11.1 FL (9.6-12.0); Monocytes % 8.9 % (1.7-12.7); Neutrophils % 81.4 % (38.7-73.9); Platelet Count 215 T/CUMM (130-400); Red Blood Count 4.05 MC/CUMM (3.8-5.5); Red Cell Distribution Width 17.7 % (9.3-17.3)
[2019-07-25 06:03] LABS: Calcium 10.4 MG/DL (8.5-10.1); Osmolality,Calculated 272.2 MOS/KG (273-304)
[2019-07-25 06:14] LABS: Hypochromasia 1+; Platelet Estimate Adequate
[2019-07-25] MEDS: INSULIN LISPRO 100 UNIT/ML SUBCUT SCH ×4 (08:55→21:54)
[2019-07-25] MEDS: NON-FORMULARY MEDICATION (Sucroferric Oxyhydroxide [Velphoro] 500 MG) PO SCH ×5 (09:56→16:34)
[2019-07-25] MEDS: ASPIRIN EC 81 MG TABLET PO SCH ×2 (09:56→12:48)
[2019-07-25] MEDS: hydrALAZINE 25 MG TABLET PO SCH ×4 (09:56→21:54)
[2019-07-25] MEDS: MULTIVITAMIN (BEROCCA) TABLET PO SCH ×2 (09:57→12:48)
[2019-07-25] MEDS: FAMOTIDINE 20 MG TABLET PO SCH ×2 (09:57→12:48)
[2019-07-25] MEDS: CINACALCET 30 MG TABLET PO SCH ×2 (09:57→12:48)
[2019-07-25] MEDS: LOSARTAN 25 MG TABLET PO SCH ×2 (09:57→12:48)
[2019-07-25] MEDS: SODIUM HYPOCHLORITE 0.25% IRRIG 473 ML BOTTLE TOP SCH (13:55)
[2019-07-25] MEDS: diphenhydrAMINE CAP 25 MG CAPSULE PO PRN ×2 (16:30→21:52)
[2019-07-25] MEDS: MORPHINE 4 MG/1 ML VIAL IV PRN ×2 (16:30→21:52)
[2019-07-25] MEDS: SIMVASTATIN 10 MG TABLET PO SCH (21:52)
[2019-07-25] MEDS: amLODIPine 10 MG TABLET PO SCH (21:53)
[2019-07-26] MEDS: PIPERACILLIN/TAZOBACTAM 3,375 MG in SODIUM CHLORIDE 0.9% 100 ML IV SCH (03:07)
[2019-07-26 07:29] LABS: Basophils # 0.1 10*3/uL (0.0-0.2); Basophils % 0.5 % (0.0-0.8); Eosinophils # 0.3 10*3/uL (0.0-0.87); Hematocrit 31.9 VOL% (42.0-52.0); Hemoglobin 9.8 GM/DL (14.0-18.0); Immature Granulocytes % 1.4 %; Immature Granulocytes Absolute 0.21 #; Lymphocytes # 1.3 10*3/uL (1.4-4.0); Lymphocytes % 8.6 % (21.2-54.2); Mean Corpuscular HGB Conc 30.7 GM/DL (32-36); Mean Corpuscular Volume 85.1 FL (87-102); Mean Platelet Volume 11.1 FL (9.6-12.0); Monocytes % 9.1 % (1.7-12.7); Neutrophils % 78.4 % (38.7-73.9); Platelet Count 225 T/CUMM (130-400); Red Blood Count 3.75 MC/CUMM (3.8-5.5); Red Cell Distribution Width 17.7 % (9.3-17.3); White Blood Count 15.2 T/CUMM (4-12)
[2019-07-26 07:52] LABS: Calcium 9.3 MG/DL (8.5-10.1); Osmolality,Calculated 269.1 MOS/KG (273-304)
[2019-07-26] MEDS: FAMOTIDINE 20 MG TABLET PO SCH (09:02)
[2019-07-26] MEDS: CINACALCET 30 MG TABLET PO SCH (09:02)
[2019-07-26] MEDS: ASPIRIN EC 81 MG TABLET PO SCH (09:02)
[2019-07-26] MEDS: LOSARTAN 25 MG TABLET PO SCH (09:02)
[2019-07-26] MEDS: hydrALAZINE 25 MG TABLET PO SCH ×2 (09:02→16:45)
[2019-07-26] MEDS: MULTIVITAMIN (BEROCCA) TABLET PO SCH (09:02)
[2019-07-26] MEDS: SODIUM HYPOCHLORITE 0.25% IRRIG 473 ML BOTTLE TOP SCH (09:04)
[2019-07-26] MEDS: NON-FORMULARY MEDICATION (Sucroferric Oxyhydroxide [Velphoro] 500 MG) PO SCH ×3 (09:04→11:30)
[2019-07-26] MEDS: INSULIN LISPRO 100 UNIT/ML SUBCUT SCH ×3 (09:04→16:45)
[2019-07-26] MEDS: MORPHINE 4 MG/1 ML VIAL IV PRN (11:27)
[2019-07-26] MEDS: diphenhydrAMINE CAP 25 MG CAPSULE PO PRN (11:27)
[2019-07-26] MEDS ORDERED: LEVOFLOXACIN INJ 500 MG in PREMIX 1 EACH IV SCH (14:00)
[2019-07-26] MEDS ORDERED: cefTRIAXone 1,000 MG in SYRINGE 1 EACH IV SCH (14:00)
[2019-07-26 16:29] VITALS: BP 151/75
== END 2019-07-26 16:50 | DRG 856 ==
LOC: N.3E 22:31 → SUATTDRO 22:31 → SUPCPDRO 22:31 → N.3E 07-23 05:33
PROVIDERS: ADMIT Internal Medicine; ATTEND Emergency Medicine

== ENCOUNTER 2019-09-30 14:46 | Inpatient (IN) ==
[2019-09-30] MEDS ORDERED: PIPERACILLIN/TAZOBACTAM 3,375 MG in SODIUM CHLORIDE 0.9% 100 ML IV STA (17:25)
[2019-09-30 18:18] LABS: Basophils # 0.1 10*3/uL (0.0-0.2); Basophils % 0.6 % (0.0-0.8); Eosinophils # 0.4 10*3/uL (0.0-0.87); Eosinophils % 4.2 % (0.00-10.9); Hematocrit 31.5 VOL% (42.0-52.0); Hemoglobin 9.9 GM/DL (14.0-18.0); Immature Granulocytes % 0.6 %; Immature Granulocytes Absolute 0.06 #; Lymphocytes # 1.3 10*3/uL (1.4-4.0); Lymphocytes % 13.6 % (21.2-54.2); Mean Corpuscular HGB Conc 31.4 GM/DL (32-36); Mean Corpuscular Volume 86.3 FL (87-102); Mean Platelet Volume 10.9 FL (9.6-12.0); Monocytes % 9.6 % (1.7-12.7); Neutrophils % 71.4 % (38.7-73.9); Platelet Count 244 T/CUMM (130-400); Red Blood Count 3.65 MC/CUMM (3.8-5.5); Red Cell Distribution Width 20.3 % (9.3-17.3); White Blood Count 9.7 T/CUMM (4-12)
[2019-09-30 18:37] LABS: Calcium 9.5 MG/DL (8.5-10.1); Osmolality,Calculated 274.4 MOS/KG (273-304); Total Protein 9.5 G/DL (6.4-8.3)
[2019-09-30] MEDS ORDERED: PIPERACILLIN/TAZOBACTAM 3,375 MG VIAL IV ONE (18:43)
[2019-09-30] MEDS ORDERED: VANCOMYCIN INJ 1,000 MG in SODIUM CHLORIDE 0.9% 250 ML IV ONE (19:37)
[2019-09-30] MEDS ORDERED: GLUCAGON 1 MG VIAL IM PRN (19:41)
[2019-09-30] MEDS ORDERED: ONDANSETRON 4 MG/2 ML VIAL IV PRN (19:41)
[2019-09-30] MEDS ORDERED: MORPHINE 4 MG/1 ML VIAL IV PRN (19:41)
[2019-09-30] MEDS ORDERED: DOCUSATE SODIUM 100 MG CAPSULE PO PRN (19:41)
[2019-09-30] MEDS ORDERED: ACETAMINOPHEN 325 MG TABLET PO PRN (19:41)
[2019-09-30] MEDS ORDERED: DEXTROSE 50% 25 GM/50 ML VIAL IV PRN (19:41)
[2019-09-30] MEDS ORDERED: CEFEPIME 1,000 MG in SODIUM CHLORIDE 0.9% 100 ML IV ONE (20:00)
[2019-09-30] MEDS ORDERED: VANCOMYCIN INJ 1,250 MG in SODIUM CHLORIDE 0.9% 250 ML IV ONE (20:00)
[2019-09-30] MEDS ORDERED: VANCOMYCIN INJ 1,000 MG in SODIUM CHLORIDE 0.9% 250 ML IV PRN (20:26)
[2019-09-30] MEDS: INSULIN REGULAR 100 UNIT/ML SUBCUT SCH (21:25)
[2019-10-01] MEDS: hydrALAZINE 20 MG/1 ML VIAL IV PRN ×3 (04:22→18:26)
[2019-10-01 07:37] LABS: Basophils # 0.1 10*3/uL (0.0-0.2); Basophils % 0.8 % (0.0-0.8); Eosinophils # 0.4 10*3/uL (0.0-0.87); Eosinophils % 3.8 % (0.00-10.9); Hematocrit 31.5 VOL% (42.0-52.0); Hemoglobin 9.7 GM/DL (14.0-18.0); Immature Granulocytes % 0.6 %; Immature Granulocytes Absolute 0.07 #; Lymphocytes # 1.3 10*3/uL (1.4-4.0); Lymphocytes % 11.8 % (21.2-54.2); Mean Corpuscular HGB Conc 30.8 GM/DL (32-36); Mean Corpuscular Volume 86.8 FL (87-102); Mean Platelet Volume 10.9 FL (9.6-12.0); Monocytes % 11.7 % (1.7-12.7); NRBC # 0.02 10*3/uL; Neutrophils % 71.3 % (38.7-73.9); Platelet Count 236 T/CUMM (130-400); Red Blood Count 3.63 MC/CUMM (3.8-5.5); Red Cell Distribution Width 20.5 % (9.3-17.3); White Blood Count 10.9 T/CUMM (4-12)
[2019-10-01 07:56] LABS: Osmolality,Calculated 277.7 MOS/KG (273-304)
[2019-10-01] MEDS ORDERED: LIDOCAINE 1% 20 ML VIAL ONE (08:15)
[2019-10-01] MEDS ORDERED: BUPIVACAINE MPF 0.25% 30 ML VIAL ONE (08:15)
[2019-10-01] MEDS ORDERED: VANCOMYCIN INJ 500 MG in SODIUM CHLORIDE 0.9% 100 ML IV PRN (10:26)
[2019-10-01] MEDS ORDERED: SODIUM CHLORIDE 0.9% 250 ML IV SCH (11:00)
[2019-10-01] MEDS ORDERED: SEVOFLURANE 1 UNIT/15 MINUTE INH ONE (11:21)
[2019-10-01] MEDS ORDERED: LIDOCAINE 2% 5 ML VIAL ONE (11:21)
[2019-10-01] MEDS ORDERED: propofoL 200 MG/20 ML VIAL IV ONE (11:21)
[2019-10-01] MEDS ORDERED: SODIUM CHLORIDE 0.9% 250 ML IV ONE (11:22)
[2019-10-01] MEDS ORDERED: fentaNYL 100 MCG/2 ML VIAL ONE (11:22)
[2019-10-01] MEDS ORDERED: MIDAZOLAM 2 MG/2 ML VIAL ONE (11:22)
[2019-10-01] MEDS ORDERED: ONDANSETRON 4 MG/2 ML VIAL ONE (11:22)
[2019-10-01] MEDS: INSULIN REGULAR 100 UNIT/ML SUBCUT SCH ×3 (12:32→22:48)
[2019-10-01] MEDS ORDERED: VANCOMYCIN INJ 750 MG in SODIUM CHLORIDE 0.9% 250 ML IV ONE (17:00)
[2019-10-02 06:22] LABS: Basophils # 0.1 10*3/uL (0.0-0.2); Eosinophils # 0.4 10*3/uL (0.0-0.87); Eosinophils % 4.4 % (0.00-10.9); Hematocrit 32.3 VOL% (42.0-52.0); Hemoglobin 10.2 GM/DL (14.0-18.0); Immature Granulocytes % 0.6 %; Immature Granulocytes Absolute 0.05 #; Lymphocytes # 0.9 10*3/uL (1.4-4.0); Lymphocytes % 9.6 % (21.2-54.2); Mean Corpuscular HGB Conc 31.6 GM/DL (32-36); Mean Corpuscular Volume 85.7 FL (87-102); Mean Platelet Volume 10.9 FL (9.6-12.0); Monocytes % 11.6 % (1.7-12.7); NRBC # 0.03 10*3/uL; Neutrophils % 72.8 % (38.7-73.9); Platelet Count 240 T/CUMM (130-400); Red Blood Count 3.77 MC/CUMM (3.8-5.5); Red Cell Distribution Width 20.5 % (9.3-17.3); White Blood Count 8.8 T/CUMM (4-12)
[2019-10-02 06:41] LABS: Calcium 9.2 MG/DL (8.5-10.1); Osmolality,Calculated 279.1 MOS/KG (273-304)
[2019-10-02] MEDS ORDERED: SODIUM HYPOCHLORITE 0.25% IRRIG 473 ML BOTTLE TOP SCH (09:00)
[2019-10-02] MEDS: INSULIN REGULAR 100 UNIT/ML SUBCUT SCH ×4 (11:14→22:02)
[2019-10-02] MEDS: hydrALAZINE 20 MG/1 ML VIAL IV PRN (16:47)
[2019-10-02] MEDS ORDERED: CEFEPIME 1,000 MG in SODIUM CHLORIDE 0.9% 100 ML IV SCH (17:00)
[2019-10-02] MEDS ORDERED: amLODIPine 10 MG TABLET PO SCH (21:00)
[2019-10-02] MEDS ORDERED: diphenhydrAMINE CAP 25 MG CAPSULE PO PRN (22:46)
[2019-10-03 05:50] LABS: Basophils # 0.1 10*3/uL (0.0-0.2); Basophils % 1.5 % (0.0-0.8); Eosinophils # 0.3 10*3/uL (0.0-0.87); Eosinophils % 4.6 % (0.00-10.9); Hematocrit 31.7 VOL% (42.0-52.0); Hemoglobin 10.1 GM/DL (14.0-18.0); Immature Granulocytes % 0.6 %; Immature Granulocytes Absolute 0.04 #; Lymphocytes # 1.1 10*3/uL (1.4-4.0); Lymphocytes % 15.8 % (21.2-54.2); Mean Corpuscular HGB Conc 31.9 GM/DL (32-36); Mean Corpuscular Volume 84.1 FL (87-102); Mean Platelet Volume 11.1 FL (9.6-12.0); Monocytes % 14.4 % (1.7-12.7); NRBC # 0.03 10*3/uL; Neutrophils % 63.1 % (38.7-73.9); Platelet Count 235 T/CUMM (130-400); Red Blood Count 3.77 MC/CUMM (3.8-5.5); White Blood Count 6.9 T/CUMM (4-12)
[2019-10-03 06:13] LABS: Calcium 9.5 MG/DL (8.5-10.1); Osmolality,Calculated 277.4 MOS/KG (273-304)
[2019-10-03 07:43] VITALS: BP 181/97
[2019-10-03] MEDS: INSULIN REGULAR 100 UNIT/ML SUBCUT SCH (08:32)
[2019-10-03] MEDS ORDERED: hydrALAZINE 25 MG TABLET PO SCH (09:00)
[2019-10-03] MEDS ORDERED: VANCOMYCIN INJ 500 MG in SODIUM CHLORIDE 0.9% 100 ML IV ONE (17:00)
== END 2019-10-03 14:30 | disposition home health service (06) | DRG 856 ==
LOC: N.ED 14:46 → N.EDINP 19:35 → N.3E 20:55
PROVIDERS: ADMIT Internal Medicine; ATTEND Internal Medicine

== ENCOUNTER 2020-03-17 10:01 | Inpatient (IN) ==
[2020-03-17 11:29] LABS: Basophils # 0.2 10*3/uL (0.0-0.2); Basophils % 0.4 % (0.0-0.8); Eosinophils # 0.1 10*3/uL (0.0-0.87); Eosinophils % 0.3 % (0.00-10.9); Hematocrit 29.4 VOL% (42.0-52.0); Hemoglobin 9.4 GM/DL (14.0-18.0); Immature Granulocytes % 5.5 %; Lymphocytes # 1.5 10*3/uL (1.4-4.0); Lymphocytes % 3.6 % (21.2-54.2); Mean Corpuscular Volume 91.3 FL (87-102); Mean Platelet Volume 10.8 FL (9.6-12.0); Monocytes % 5.1 % (1.7-12.7); NRBC # 0.05 10*3/uL; Neutrophils % 85.1 % (38.7-73.9); Platelet Count 444 T/CUMM (130-400); Red Blood Count 3.22 MC/CUMM (3.8-5.5); Red Cell Distribution Width 17.1 % (9.3-17.3)
[2020-03-17 11:53] LABS: Hypochromasia 1+; Lymphocytes 3 % (20-55); Microcytosis 1+; Nucleated Red Blood Cells 1 (0-5); Platelet Estimate Adequate; Segmented Neutrophils 88 % (50-85); Total Cells Counted 100
[2020-03-17 12:00] LABS: Albumin 2.4 G/DL (3.4-5.0); Bilirubin,Total 0.9 MG/DL (0.2-1.0); Calcium 10.2 MG/DL (8.5-10.1); Osmolality,Calculated 274.8 MOS/KG (273-304); Potassium 3.9 MMOL/L (3.5-5.1); Total Protein 8.7 G/DL (6.4-8.3)
[2020-03-17] MEDS ORDERED: PIPERACILLIN/TAZOBACTAM 3,375 MG in SODIUM CHLORIDE 0.9% 100 ML IV STA (12:05)
[2020-03-17] MEDS ORDERED: VANCOMYCIN INJ 1,000 MG in SODIUM CHLORIDE 0.9% 250 ML IV STA (12:05)
[2020-03-17 12:43] LABS: Sedimentation Rate-Westergren 57 MM/HR (0-20)
[2020-03-17] MEDS ORDERED: KETOROLAC 15 MG/1 ML VIAL IV PRN (12:57)
[2020-03-17] MEDS ORDERED: ALBUTEROL/IPRATROPIUM 3 ML NEB RESP TX PRN (12:57)
[2020-03-17] MEDS ORDERED: BISACODYL 5 MG TABLET PO PRN (12:57)
[2020-03-17] MEDS ORDERED: ONDANSETRON 4 MG/2 ML VIAL IV PRN (12:57)
[2020-03-17] MEDS ORDERED: ACETAMINOPHEN 325 MG TABLET PO PRN (12:57)
[2020-03-17] MEDS ORDERED: VANCOMYCIN 1,000 MG VIAL ONE (13:38)
[2020-03-17] MEDS ORDERED: SEVOFLURANE 1 UNIT/15 MINUTE INH ONE (13:59)
[2020-03-17] MEDS ORDERED: ETOMIDATE 40 MG/20 ML VIAL IV ONE (13:59)
[2020-03-17] MEDS ORDERED: SODIUM CHLORIDE 0.9% 250 ML IV ONE (13:59)
[2020-03-17] MEDS ORDERED: LIDOCAINE 2% 5 ML VIAL ONE (13:59)
[2020-03-17] MEDS ORDERED: SUCCINYLCHOLINE 200 MG/10 ML VIAL ONE (13:59)
[2020-03-17] MEDS ORDERED: VANCOMYCIN INJ 500 MG in SODIUM CHLORIDE 0.9% 100 ML IV ONE (18:00)
[2020-03-17] MEDS: LOPERAMIDE 1 MG/7.5 ML 30 ML BOTTLE PO PRN (23:26)
[2020-03-17] MEDS: PIPERACILLIN/TAZOBACTAM 3,375 MG in SODIUM CHLORIDE 0.9% 100 ML IV SCH (23:33)
[2020-03-18 04:00] LABS: Basophils # 0.1 10*3/uL (0.0-0.2); Basophils % 0.5 % (0.0-0.8); Eosinophils # 0.5 10*3/uL (0.0-0.87); Eosinophils % 2.3 % (0.00-10.9); Hematocrit 27.3 VOL% (42.0-52.0); Hemoglobin 9.1 GM/DL (14.0-18.0); Immature Granulocytes % 2.5 %; Immature Granulocytes Absolute 0.55 #; Lymphocytes # 1.7 10*3/uL (1.4-4.0); Lymphocytes % 7.6 % (21.2-54.2); Mean Corpuscular HGB Conc 33.3 GM/DL (32-36); Mean Corpuscular Volume 88.3 FL (87-102); Mean Platelet Volume 10.7 FL (9.6-12.0); Monocytes % 5.8 % (1.7-12.7); NRBC # 0.05 10*3/uL; Neutrophils % 81.3 % (38.7-73.9); Platelet Count 422 T/CUMM (130-400); Red Blood Count 3.09 MC/CUMM (3.8-5.5); Red Cell Distribution Width 16.8 % (9.3-17.3)
[2020-03-18 04:21] LABS: Calcium 9.5 MG/DL (8.5-10.1); Osmolality,Calculated 289.8 MOS/KG (273-304); Potassium 4.1 MMOL/L (3.5-5.1)
[2020-03-18 04:23] LABS: Eosinophils 3 % (0-10); Hypochromasia 1+; Lymphocytes 6 % (20-55); Microcytosis 1+; Ovalocytes Slight; Platelet Estimate Adequate; Segmented Neutrophils 86 % (50-85); Total Cells Counted 100
[2020-03-18] MEDS: PANTOPRAZOLE 40 MG TABLET PO SCH (16:17)
[2020-03-18] MEDS: PIPERACILLIN/TAZOBACTAM 3,375 MG in SODIUM CHLORIDE 0.9% 100 ML IV SCH (16:17)
[2020-03-18] MEDS: LOPERAMIDE 1 MG/7.5 ML 30 ML BOTTLE PO PRN (16:30)
[2020-03-18] MEDS ORDERED: VANCOMYCIN INJ 500 MG in SODIUM CHLORIDE 0.9% 100 ML IV ONE (17:00)
[2020-03-18] MEDS ORDERED: VANCOMYCIN INJ 500 MG in SODIUM CHLORIDE 0.9% 100 ML IV PRN (17:00)
[2020-03-19] MEDS: PIPERACILLIN/TAZOBACTAM 3,375 MG in SODIUM CHLORIDE 0.9% 100 ML IV SCH ×3 (00:59→15:55)
[2020-03-19 05:38] LABS: Basophils # 0.1 10*3/uL (0.0-0.2); Basophils % 0.9 % (0.0-0.8); Eosinophils # 0.7 10*3/uL (0.0-0.87); Eosinophils % 4.9 % (0.00-10.9); Hematocrit 31.2 VOL% (42.0-52.0); Hemoglobin 9.9 GM/DL (14.0-18.0); Immature Granulocytes % 2.7 %; Immature Granulocytes Absolute 0.36 #; Lymphocytes # 1.6 10*3/uL (1.4-4.0); Mean Corpuscular HGB Conc 31.7 GM/DL (32-36); Mean Corpuscular Volume 91.5 FL (87-102); Mean Platelet Volume 10.8 FL (9.6-12.0); Monocytes % 8.3 % (1.7-12.7); NRBC # 0.02 10*3/uL; Neutrophils % 71.2 % (38.7-73.9); Platelet Count 486 T/CUMM (130-400); Red Blood Count 3.41 MC/CUMM (3.8-5.5); Red Cell Distribution Width 16.7 % (9.3-17.3); White Blood Count 13.2 T/CUMM (4-12)
[2020-03-19] MEDS ORDERED: GLUCAGON 1 MG VIAL IM PRN ×2 (08:17→08:32)
[2020-03-19] MEDS ORDERED: DEXTROSE 50% 25 GM/50 ML VIAL IV PRN ×2 (08:17→08:32)
[2020-03-19] MEDS: INSULIN REGULAR 100 UNIT/ML SUBCUT SCH ×3 (09:37→16:54)
[2020-03-19] MEDS: PANTOPRAZOLE 40 MG TABLET PO SCH (14:56)
[2020-03-19] MEDS: diphenhydrAMINE CAP 25 MG CAPSULE PO PRN (16:54)
[2020-03-19] MEDS ORDERED: VANCOMYCIN INJ 500 MG in SODIUM CHLORIDE 0.9% 100 ML IV ONE (17:00)
[2020-03-20] MEDS: PIPERACILLIN/TAZOBACTAM 3,375 MG in SODIUM CHLORIDE 0.9% 100 ML IV SCH ×2 (01:10→13:40)
[2020-03-20] MEDS: INSULIN REGULAR 100 UNIT/ML SUBCUT SCH ×4 (01:26→17:00)
[2020-03-20] MEDS: diphenhydrAMINE CAP 25 MG CAPSULE PO PRN (04:31)
[2020-03-20] MEDS ORDERED: ROPIVACAINE 0.5% 30 ML VIAL ONE (06:35)
[2020-03-20] MEDS ORDERED: SODIUM CHLORIDE 0.9% 250 ML IV SCH (07:00)
[2020-03-20] MEDS ORDERED: MIDAZOLAM 2 MG/2 ML VIAL ONE (07:50)
[2020-03-20] MEDS ORDERED: propofoL 200 MG/20 ML VIAL IV ONE (07:50)
[2020-03-20] MEDS ORDERED: fentaNYL 100 MCG/2 ML VIAL ONE (07:50)
[2020-03-20] MEDS ORDERED: ETOMIDATE 40 MG/20 ML VIAL IV ONE (07:50)
[2020-03-20] MEDS ORDERED: LIDOCAINE 2% 5 ML VIAL ONE (07:50)
[2020-03-20] MEDS ORDERED: ROCURONIUM 50 MG/5 ML VIAL IV ONE (08:05)
[2020-03-20] MEDS ORDERED: SUCCINYLCHOLINE 200 MG/10 ML VIAL ONE (08:05)
[2020-03-20] MEDS ORDERED: PHENYLEPHRINE 1 MG/10 ML SYRINGE IV ONE (08:51)
[2020-03-20] MEDS ORDERED: SODIUM CHLORIDE 0.9% 250 ML IV ONE (08:51)
[2020-03-20] MEDS ORDERED: GLYCOPYRROLATE 0.4 MG/2 ML VIAL ONE (08:55)
[2020-03-20] MEDS ORDERED: NEOSTIGMINE 10 MG/10 ML VIAL ONE (08:55)
[2020-03-20] MEDS ORDERED: ONDANSETRON 4 MG/2 ML VIAL ONE (08:55)
[2020-03-20] MEDS ORDERED: SEVOFLURANE 1 UNIT/15 MINUTE INH ONE (08:59)
[2020-03-20] MEDS ORDERED: BUPIVACAINE 0.5% 50 ML VIAL ONE (09:17)
[2020-03-20] MEDS ORDERED: EPINEPHrine 1 MG/ML VIAL ONE (09:17)
[2020-03-20] MEDS: PANTOPRAZOLE 40 MG TABLET PO SCH (13:31)
[2020-03-20] MEDS: GABAPENTIN 100 MG CAPSULE PO SCH ×2 (17:00→20:39)
[2020-03-20] MEDS: SEVELAMER CARBONATE 800 MG TABLET PO SCH (17:00)
[2020-03-21] MEDS: diphenhydrAMINE CAP 25 MG CAPSULE PO PRN (05:12)
[2020-03-21 05:59] LABS: Calcium 9.3 MG/DL (8.5-10.1); Osmolality,Calculated 270.2 MOS/KG (273-304); Potassium 5.2 MMOL/L (3.5-5.1)
[2020-03-21 06:03] LABS: Basophils # 0.1 10*3/uL (0.0-0.2); Basophils % 0.5 % (0.0-0.8); Eosinophils # 0.6 10*3/uL (0.0-0.87); Eosinophils % 3.4 % (0.00-10.9); Hematocrit 26.9 VOL% (42.0-52.0); Hemoglobin 8.8 GM/DL (14.0-18.0); Immature Granulocytes % 3.7 %; Immature Granulocytes Absolute 0.62 #; Lymphocytes # 1.5 10*3/uL (1.4-4.0); Lymphocytes % 8.8 % (21.2-54.2); Mean Corpuscular HGB Conc 32.7 GM/DL (32-36); Mean Corpuscular Volume 90.3 FL (87-102); Mean Platelet Volume 10.5 FL (9.6-12.0); Monocytes % 8.6 % (1.7-12.7); Platelet Count 460 T/CUMM (130-400); Red Blood Count 2.98 MC/CUMM (3.8-5.5); Red Cell Distribution Width 16.1 % (9.3-17.3); White Blood Count 16.6 T/CUMM (4-12)
[2020-03-21] MEDS: INSULIN REGULAR 100 UNIT/ML SUBCUT SCH ×5 (06:05→21:29)
[2020-03-21 06:59] LABS: Band Neutrophils 2 % (0-10); Eosinophils 3 % (0-10); Lymphocytes 13 % (20-55); Platelet Estimate Normal; Segmented Neutrophils 70 % (50-85); Total Cells Counted 100
[2020-03-21 07:00] LABS: Anisocytosis 1+; Giant Platelets Few; Macrocytosis 1+; Polychromasia Slight; Target Cells Few
[2020-03-21] MEDS: SEVELAMER CARBONATE 800 MG TABLET PO SCH ×3 (09:08→17:56)
[2020-03-21] MEDS: GABAPENTIN 100 MG CAPSULE PO SCH ×3 (09:08→21:29)
[2020-03-21] MEDS: PANTOPRAZOLE 40 MG TABLET PO SCH (09:09)
[2020-03-21] MEDS: HYDROmorphone 2 MG/1 ML VIAL IV PRN ×2 (10:48→17:57)
[2020-03-22] MEDS: HYDROmorphone 2 MG/1 ML VIAL IV PRN ×4 (02:21→23:11)
[2020-03-22 06:51] LABS: Basophils # 0.1 10*3/uL (0.0-0.2); Basophils % 0.8 % (0.0-0.8); Eosinophils # 0.6 10*3/uL (0.0-0.87); Eosinophils % 3.4 % (0.00-10.9); Hematocrit 36.1 VOL% (42.0-52.0); Hemoglobin 10.5 GM/DL (14.0-18.0); Immature Granulocytes % 3.1 %; Immature Granulocytes Absolute 0.55 #; Lymphocytes # 1.8 10*3/uL (1.4-4.0); Lymphocytes % 10.3 % (21.2-54.2); Mean Corpuscular HGB Conc 29.1 GM/DL (32-36); Mean Corpuscular Volume 101.7 FL (87-102); Mean Platelet Volume 10.9 FL (9.6-12.0); Monocytes % 11.3 % (1.7-12.7); Neutrophils % 71.1 % (38.7-73.9); Platelet Count 212 T/CUMM (130-400); Red Blood Count 3.55 MC/CUMM (3.8-5.5); White Blood Count 17.5 T/CUMM (4-12)
[2020-03-22] MEDS: INSULIN REGULAR 100 UNIT/ML SUBCUT SCH ×4 (07:30→20:15)
[2020-03-22] MEDS: SEVELAMER CARBONATE 800 MG TABLET PO SCH ×3 (09:42→16:55)
[2020-03-22] MEDS: PANTOPRAZOLE 40 MG TABLET PO SCH (09:42)
[2020-03-22] MEDS: GABAPENTIN 100 MG CAPSULE PO SCH ×3 (09:43→20:15)
[2020-03-22] MEDS: diphenhydrAMINE CAP 25 MG CAPSULE PO PRN (11:54)
[2020-03-23 06:09] LABS: Basophils # 0.1 10*3/uL (0.0-0.2); Basophils % 0.6 % (0.0-0.8); Eosinophils # 0.6 10*3/uL (0.0-0.87); Eosinophils % 4.3 % (0.00-10.9); Hematocrit 27.3 VOL% (42.0-52.0); Hemoglobin 8.4 GM/DL (14.0-18.0); Immature Granulocytes % 2.7 %; Immature Granulocytes Absolute 0.39 #; Lymphocytes # 1.5 10*3/uL (1.4-4.0); Lymphocytes % 10.1 % (21.2-54.2); Mean Corpuscular HGB Conc 30.8 GM/DL (32-36); Mean Corpuscular Volume 95.1 FL (87-102); Mean Platelet Volume 10.5 FL (9.6-12.0); Monocytes % 9.7 % (1.7-12.7); Neutrophils % 72.6 % (38.7-73.9); Platelet Count 449 T/CUMM (130-400); Red Blood Count 2.87 MC/CUMM (3.8-5.5); Red Cell Distribution Width 16.4 % (9.3-17.3); White Blood Count 14.5 T/CUMM (4-12)
[2020-03-23] MEDS: PANTOPRAZOLE 40 MG TABLET PO SCH (09:20)
[2020-03-23] MEDS: HYDROmorphone 2 MG/1 ML VIAL IV PRN ×3 (09:24→20:22)
[2020-03-23] MEDS: INSULIN REGULAR 100 UNIT/ML SUBCUT SCH ×4 (10:32→20:20)
[2020-03-23] MEDS: SEVELAMER CARBONATE 800 MG TABLET PO SCH ×3 (10:32→16:26)
[2020-03-23] MEDS: GABAPENTIN 100 MG CAPSULE PO SCH ×3 (10:33→20:19)
[2020-03-23] MEDS: diphenhydrAMINE CAP 25 MG CAPSULE PO PRN (16:18)
[2020-03-24] MEDS: HYDROmorphone 2 MG/1 ML VIAL IV PRN ×3 (00:12→13:57)
[2020-03-24 05:56] LABS: Basophils # 0.1 10*3/uL (0.0-0.2); Basophils % 0.8 % (0.0-0.8); Eosinophils # 0.6 10*3/uL (0.0-0.87); Hematocrit 25.2 VOL% (42.0-52.0); Hemoglobin 8.3 GM/DL (14.0-18.0); Immature Granulocytes % 1.6 %; Lymphocytes # 1.6 10*3/uL (1.4-4.0); Lymphocytes % 13.4 % (21.2-54.2); Mean Corpuscular HGB Conc 32.9 GM/DL (32-36); Mean Corpuscular Volume 91.6 FL (87-102); Mean Platelet Volume 10.4 FL (9.6-12.0); Monocytes % 9.5 % (1.7-12.7); Neutrophils % 69.7 % (38.7-73.9); Platelet Count 458 T/CUMM (130-400); Red Blood Count 2.75 MC/CUMM (3.8-5.5); White Blood Count 12.2 T/CUMM (4-12)
[2020-03-24 06:32] LABS: Albumin 2.2 G/DL (3.4-5.0); Bilirubin,Total 1.2 MG/DL (0.2-1.0); Calcium 9.3 MG/DL (8.5-10.1); Osmolality,Calculated 275.7 MOS/KG (273-304); Potassium 4.9 MMOL/L (3.5-5.1); Total Protein 7.9 G/DL (6.4-8.3)
[2020-03-24] MEDS: SEVELAMER CARBONATE 800 MG TABLET PO SCH ×2 (07:59→13:56)
[2020-03-24] MEDS: GABAPENTIN 100 MG CAPSULE PO SCH (07:59)
[2020-03-24] MEDS: PANTOPRAZOLE 40 MG TABLET PO SCH (07:59)
[2020-03-24] MEDS: INSULIN REGULAR 100 UNIT/ML SUBCUT SCH ×2 (07:59→11:30)
[2020-03-24 16:46] VITALS: BP 138/97
== END 2020-03-24 16:17 | DRG 239 ==
LOC: N.ED 10:01 → N.EDINP 12:57 → N.3E 16:32
PROVIDERS: ADMIT Surgery; ATTEND Surgery